=== PATIENT | female | born 1975 | race Two or more races ===

== ENCOUNTER 2022-11-17 05:23 | Emergency (ER) | payer MEDICAID, OTHER ==
[2022-11-17] MEDS ORDERED: PRED20TA2 PO (11:14)
[2022-11-17] MEDS ORDERED: IBUP800T27 PO (11:14)
== END 2022-11-17 06:01 | disposition left against medical advice (07) ==
LOC: ER 05:23
DX: S69.90XA Unspecified injury of unspecified wrist, hand and finger(s), initial encounter (principal); Z53.21 Procedure and treatment not carried out due to patient leaving prior to being seen by health care provider; X58.XXXA Exposure to other specified factors, initial encounter; Y93.89 Activity, other specified; Y92.89 Other specified places as the place of occurrence of the external cause; Y99.8 Other external cause status

== ENCOUNTER 2022-11-17 09:27 | Emergency (ER) | payer MEDICAID, OTHER ==
[~2022-11-17] VITALS: Ht 170.2 cm; Wt 112.6 kg
[2022-11-17 10:04] VITALS: BP 172/100
[2022-11-17] MEDS ORDERED: KETOROLAC TROMETH 60MG/2ML VIAL IM ONE (11:00)
[2022-11-17] MEDS ORDERED: IBUP800T27 PO (11:14)
[2022-11-17] MEDS ORDERED: PRED20TA2 PO (11:14)
== END 2022-11-17 11:21 | disposition home or self-care (01) ==
LOC: ER 09:27
DX: M19.022 Primary osteoarthritis, left elbow (principal)
CPT/HCPCS: 73080; 96372; 99283; J1885

== ENCOUNTER 2024-07-20 12:55 | Emergency (ER) | payer MEDICAID ==
[~2024-07-20] VITALS: Ht 170.2 cm; Wt 114.0 kg
[~2024-07-20 12:55] MED LIST: IBUP-1456 PO; PRED20TA2 PO
--- NOTE | 2024-07-20 13:22 | ED.PDOC ---
HPI (NEURO) HPI Comments 48 year old female presents to the ED with chief complaint of left sided numbness. Patient reports that she started experiencing left tongue numbness since yesterday with associated left arm and leg numbness 2 hours ago. Patient relays that her numbness has improved since onset and she is getting more feeling back in it. Patient admits to using Methamphetamine this morning prior to symptom onset. Patient states she has been under a lot of stress lately. Patient denies any weakness, chest pain, SOB, headache, LOC, dizziness, or fever. 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 Family History Family History: Reviewed,noncontributory to illness Social History Smoker: Quit Less Than 1 Year, Cigarettes Alcohol: Denies ETOH Use Drugs: Marijuana, Methamphetamine Lives In: Home Constitutional: denies: chills, diaphoresis, fatigue, fever, malaise, sweats, weakness, others EENTM: denies: blurred vision, double vision, ear bleeding, ear discharge, ear drainage, ear pain, ear ringing, eye pain, eye redness, hearing loss, mouth pain, mouth swelling, nasal discharge, nose bleeding, nose congestion, nose pain, photophobia, tearing, throat pain, throat swelling, voice changes, others Respiratory: denies: cough, hemoptysis, orthopnea, SOB at rest, shortness of breath, SOB with excertion, stridor, wheezing, others Cardiovascular: denies: chest pain, dizzy spells, diaphoresis, Dyspnea on exertion, edema, irregular heart beat, left arm pain, lightheadedness, palpitations, PND, syncope, others Gastrointestinal: denies: abdomen distended, abdominal pain, blood streaked bowels, constipated, diarrhea, dysphagia, difficulty swallowing, hematemesis, melena, nausea, poor appetite, poor fluid intake, rectal bleeding, rectal pain, vomiting, others Genitourinary: denies: abnormal vagina bleeding, burning, dyspareunia, dysuria, flank pain, frequency, hematuria, incontinence, pain, , vagina discha rge, urgency, others Neurological: reports: left sided numbness; denies: dizziness, fainting, headache, left sided weakness, numbness, paresthesia, pre-existing deficit, right sided numbness, right sided weakness, seizure, speech problems, tingling, tremors, weakness, others Musculoskeletal: denies: back pain, gout, joint pain, joint swelling, muscle pain, muscle stiffness, neck pain, others Integumetry: denies: bruises, change in color, change in hair/nails, dryness, laceration, lesions, lumps, rash, wounds, others Allergic/Immunocompromised: denies: Difficulty Healing, Frequent Infections, Hives, Itching, others Hematologic/Lymphatic: denies: anemia, blood clots, easy bleeding, easy bruising, swollen glands, others Endocrine: denies: excessive hunger, excessive sweating, excessive thirst, excessive urination, flushing, intolerance to cold, intolerance to heat, unexplained weight gain, unexplained weight loss, others Psychiatric: denies: anxiety, bipolar disorder, depression, hopeless, panic disorder, schizophrenia, sleepless, suicidal, others All Other Systems: Reviewed and Negative Physical Exam General Appearance: Mild Distress, Normal HEENT: Normal ENT Inspection, PERRL/EOMI Neck: Full Range of Motion, Non-Tender, Normal, Normal Inspection Respiratory: Chest Non-Tender, Lungs Clear, No Accessory Muscle Use, No Respiratory Distress, Normal Breath Sounds Cardiovascular: No Edema, No JVD, No Murmur, No Gallop, Normal Peripheral Pulses, Regular Rate/Rhythm Breast Exam: Deferred Gastrointestinal: No Organomegaly, Non Tender, No Pulsatile Mass, Normal Bowel Sounds, Soft Genitalia: Deferred Pelvic: Deferred Rectal: Deferred Extremities: No calf tenderness, Normal capillary refill, Normal inspection, Normal range of motion, Non-tender, No pedal edema Musculoskeletal : Apperance: Normal Neurologic: Alert, subpoena server II-XII nml as Tested, No Motor Deficits, Normal Affect, Normal Mood, No Sensory Deficits Cerebellar Function: Normal Reflexes: Normal Skin: Dry, Normal Color, Warm Peripheral Pulses: 3+ Radial (R), 3+ Radial (L) Lymphatic: No Adenopathy Was a procedure done? Was a procedure done?: No Differential Diagnosis (SZ) Seizure: Psychogenic Seizure, Closed Head Injury, CVA/TIA X-Ray, Labs, Meds, VS Vital Signs Date Time Temp Pulse Resp B/P (MAP) Pulse Ox O2 Delivery O2 Flow Rate FiO2 07/20/24 16:09 186/113 07/20/24 16:04 83 18 98 Room Air 07/20/24 16:04 98.2 83 18 186/113 (137) 98 98.2 07/20/24 14:06 98.5 74 18 206/118 (147) 97 07/20/24 14:06 87 Lab Test 07/20/24 15:00 Range/Units White Blood Count 10.6 4.4-10.8 10^3/uL Red Blood Count 6.40 H 4.0-5.20 10^6/uL Hemoglobin 12.0 L 12.2-16.2 g/dL Hematocrit 39.0 36.0-46.0 % Mean Corpuscular Volume 60.9 L 80.0-100.0 fL Mean Corpuscular Hemoglobin 18.8 L 28.0-32.0 pg Mean Corpuscular Hemoglobin Concent 30.9 L 32.0-36.0 g/dL Red Cell Distribution Width 20.2 H 11.8-14.3 % Platelet Count 287 140-450 10^3/uL Mean Platelet Volume 8.7 6.9-10.8 fL Neutrophils (%) (Auto) 69.5 37.0-80.0 % Lymphocytes (%) (Auto) 16.9 10.0-50.0 % Monocytes (%) (Auto) 4.9 0.0-12.0 % Eosinophils (%) (Auto) 7.7 H 0.0-7.0 % Basophils (%) (Auto) 1.0 0.0-2.0 % Neutrophils # (Auto) 7.4 1.6-8.6 10 ^3/uL Lymphocytes # (Auto) 1.8 0.4-5.4 10 ^3/uL Monocytes # (Auto) 0.5 0-1.3 10 ^3/uL Eosinophils # (Auto) 0.8 0-0.8 10 ^3/uL Basophils # (Auto) 0.1 0-0.2 10 ^3/uL Nucleated Red Blood Cells 0.2 % Platelet Estimate Adequate Hypochromasia (manual) Marked Microcytosis Marked Sodium Level 138 136-145 mmol/L Potassium Level 4.0 3.5-5.1 mmol/L Chloride Level 106 98-107 mmol/L Carbon Dioxide Level 23 20-31 mmol/L Anion Gap 9 5-15 Blood Urea Nitrogen 14 9-23 mg/dL Creatinine 0.72 0.550-1.02 mg/dL Glomerular Filtration Rate Calc 103 >90 mL/min BUN/Creatinine Ratio 19.4 10.0-20.0 Serum Glucose 90 74-106 mg/dL Calcium Level 9.8 8.7-10.4 mg/dL Troponin I High Sensitivity 11 </=34 ng/L Current Medications Medications (Trade) Dose Ordered Sig/Herbert Route Start Time Stop Time Status Last Admin Clonidine HCl (Catapres Tablet) 0.2 mg ONCE ONCE PO 07/20/24 13:30 07/20/24 13:31 DC 07/20/24 16:09 Patient alert. Possible anxiety. Vitals stable. Answering all questions. Ambulating. Had methamphetamine prior to coming to the ER. Blood pressure elevated. Was given clonidine. Saturation pristine on room air. Heart rate within normal limits. No leg swelling. No shortness a breath. No sign of any stroke. Patient did not want CT scan. Reviewed her previous visit. Explained to the patient. Was told to follow up with her primary care physician. Was told to come back if there is any problem. 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 Departure 1 Departure Time of Disposition: 17:39 Impression: Primary Impression: Hypertensive urgency Additional Impressions: Anxiety Methamphetamine use Disposition: 01 HOME / SELF CARE / HOMELESS Condition: Good Discharged With: Self Critical Care Note Critical Care Time?: No Stability Stability form required: No Heart Score Heart Score: Heart Score Response (Comments) Value History N/A 0 EKG N/A 0 Age N/A 0 Risk Factors N/A 0 Troponin N/A 0 Total 0 I personally scribed for YOAV EATON MD ([email or web address]) on 07/20/24 at 13:22. Electronically submitted by Carlos Manuel Sharma ([email or web address]). I personally scribed for YOAV EATON MD ([email or web address]) on 07/20/24 at 13:24. Electronically submitted by Carlos Manuel Sharma ([email or web address]). I personally scribed for YOAV EATON MD ([email or web address]) on 07/20/24 at 17:05. Electronically submitted by Helene Srinivasan ([email or web address]). YOAV EATON MD Jul 20, 2024 13:22
[2024-07-20 15:36] LABS: Basophils # (auto) 0.1 10 ^3/uL (0-0.2); Lymphocytes # (auto) 1.8 10 ^3/uL (0.4-5.4); Mean Corpuscular Volume 60.9 fL (80.0-100.0); Monocytes # (auto) 0.5 10 ^3/uL (0-1.3); Neutrophils % (auto) 69.5 % (37.0-80.0)
[2024-07-20 15:37] LABS: Eosinophils # (auto) 0.8 10 ^3/uL (0-0.8); Eosinophils % (auto) 7.7 % (0.0-7.0); Lymphocytes % (auto) 16.9 % (10.0-50.0); Mean Corpuscular Hemoglobin 18.8 pg (28.0-32.0); Mean Corpuscular Hgb Conc. 30.9 g/dL (32.0-36.0); Monocytes % (auto) 4.9 % (0.0-12.0); Neutrophils # (auto) 7.4 10 ^3/uL (1.6-8.6); Nucleated Red Blood Cells % 0.2 %; Platelet Count (auto) 287 10^3/uL (140-450); Red Cell Distribution Width 20.2 % (11.8-14.3); White Blood Cell 10.6 10^3/uL (4.4-10.8)
[2024-07-20 15:38] LABS: Chloride 106 mmol/L (98-107); Hypochromia Marked; Platelet Estimate Adequate; Sodium 138 mmol/L (136-145)
[2024-07-20 15:39] LABS: Anion Gap 9 (5-15); Calcium 9.8 mg/dL (8.7-10.4); Carbon Dioxide 23 mmol/L (20-31)
[2024-07-20 15:44] LABS: BUN/Creatinine Ratio 19.4 (10.0-20.0); Blood Urea Nitrogen 14 mg/dL (9-23); Glucose 90 mg/dL (74-106)
[2024-07-20] MEDS: cloNIDine HCL 0.1 MG TAB PO ONE (16:09)
[2024-07-20 19:35] VITALS: BP 167/108; PULSE 92; RESP 16; TEMP 97.7; O2SAT 99
--- NOTE | 2024-07-21 05:09 | ECG ---
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
== END 2024-07-20 19:41 | disposition home or self-care (01) ==
LOC: ER 12:57
DX: I16.0 Hypertensive urgency (principal); F41.9 Anxiety disorder, unspecified; F15.90 Other stimulant use, unspecified, uncomplicated; I51.7 Cardiomegaly; F12.10 Cannabis abuse, uncomplicated; Z87.891 Personal history of nicotine dependence
CPT/HCPCS: 36415; 80048; 84484; 85025; 93005

== ENCOUNTER 2024-08-28 15:30 | Inpatient (IN) | payer MEDICAID ==
[~2024-08-28] VITALS: Ht 170.2 cm; Wt 111.9 kg
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
[2024-08-28 16:01] LABS: Eosinophils # (auto) 0.5 10 ^3/uL (0-0.8); Mean Corpuscular Volume 60.9 fL (80.0-100.0); Monocytes # (auto) 0.5 10 ^3/uL (0-1.3); Nucleated Red Blood Cells % 0.1 %; White Blood Cell 9.2 10^3/uL (4.4-10.8)
[2024-08-28 16:03] LABS: Basophils # (auto) 0.1 10 ^3/uL (0-0.2); Basophils % (auto) 0.8 % (0.0-2.0); Eosinophils % (auto) 5.4 % (0.0-7.0); Hematocrit 37.8 % (36.0-46.0); Hemoglobin 11.7 g/dL (12.2-16.2); Lymphocytes # (auto) 1.3 10 ^3/uL (0.4-5.4); Lymphocytes % (auto) 13.8 % (10.0-50.0); Mean Corpuscular Hemoglobin 18.8 pg (28.0-32.0); Mean Corpuscular Hgb Conc. 30.8 g/dL (32.0-36.0); Monocytes % (auto) 5.4 % (0.0-12.0); Neutrophils # (auto) 6.9 10 ^3/uL (1.6-8.6); Neutrophils % (auto) 74.6 % (37.0-80.0); Platelet Count (auto) 290 10^3/uL (140-450); Red Blood Cells 6.22 10^6/uL (4.0-5.20)
[2024-08-28 16:12] LABS: Red Cell Distribution Width 20.5 % (11.8-14.3)
[2024-08-28 16:15] LABS: Alanine Aminotransferase 18 U/L (7-40); Albumin 4.5 g/dL (3.2-4.8); Anion Gap 9 (5-15); Aspartate Aminotransferase 26 U/L (13-40); BUN/Creatinine Ratio 18.7 (10.0-20.0); Blood Urea Nitrogen 14 mg/dL (9-23); Calcium 9.7 mg/dL (8.7-10.4); Carbon Dioxide 25 mmol/L (20-31); Chloride 106 mmol/L (98-107); Potassium 3.8 mmol/L (3.5-5.1); Sodium 140 mmol/L (136-145)
[2024-08-28 16:16] LABS: Bilirubin, Total 0.6 mg/dL (0.2-1.0)
[2024-08-28 16:17] LABS: Alkaline Phosphatase 146 U/L (46-116); Glucose 113 mg/dL (74-106)
--- NOTE | 2024-08-28 16:19 | DVH ---
EXAM: XR Chest, 1 View CLINICAL INDICATION: CP TECHNIQUE: Frontal view of the chest. COMPARISON: None FINDINGS: LUNGS AND PLEURAL SPACES: Unremarkable. No consolidation. No pneumothorax. HEART: Unremarkable. No cardiomegaly. MEDIASTINUM: Unremarkable. Normal mediastinal contour. BONES/JOINTS: Unremarkable. No acute fracture. OTHER FINDINGS: . None. . . .. IMPRESSION: No acute cardiopulmonary process.
[2024-08-28 18:11] LABS: Anisocytosis Slight; Hypochromia Marked; Platelet Estimate Adequate; Stomatocytes Few
[2024-08-28] MEDS: ASPirin-EC 325mg tab PO ONE (18:24)
--- NOTE | 2024-08-28 19:03 | ECG ---
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
[2024-08-28 19:22] LABS: Amphetamine Screen, Urine Pos (NEGATIVE); Barbiturate Scree,Urine Neg (NEGATIVE); Benzodiazephine Screen, Urine Neg (NEGATIVE); Cannabinoid Screen, Urine Neg (NEGATIVE); Cocaine Screen, Urine Neg (NEGATIVE); Opiate Scree,Urine Neg (NEGATIVE); Phencyclidine Screen, Urine Neg (NEGATIVE)
[2024-08-28 19:24] LABS: Urine Bacteria FEW /hpf (None Seen); Urine Blood 2+ /uL (Negative); Urine Clarity Turbid (Clear); Urine Color Yellow (Yellow); Urine Mucus FEW (None Seen); Urine Protein, UAD TRACE (Negative); Urine Specific Gravity 1.022 (1.001-1.035); Urine Squamous Epithelial Cell FEW /hpf (<5); Urine Urobilinogen Normal (Negative); Urine WBC 10 /HPF (0-5); Urine pH 6.5 (5.0-9.0)
[2024-08-28] MEDS: NITROGLYCERIN 0.4 MG SL TAB SL ONE (21:27)
[2024-08-28] MEDS: cefTRIAXone 1GM/50ML D5W 50 ML IV ONE (21:42)
[2024-08-28] MEDS: IOHEXOL 350 MG/ML 100ML IJ ONE (21:53)
[2024-08-28 22:37] LABS: INR 1.03 (0.9-1.15); Partial Thromboplastin Time 23.7 SEC (24.5-34.5); Prothrombin Time 10.9 sec (9.3-11.8)
--- NOTE | 2024-08-28 22:43 | DVHINCON2 ---
Date of service: Aug 28, [address] Uribe Reason for Consultation LLE weakness History of Present Illness This is a difficult, stat consult. She is a poor historian Ms. Lawson is a 48 years old right-handed female with a history of obesity, the patient was came to the hospital with a chief company of chest pain, but she was has other problems. She developed progressive weakness in the left arm and the leg when she was walking on 08/27/2024, and she was still able to walk and use the left arm and the leg; since the morning on 08/28/2024, she is not able to walk. At this time, she is not able to use the left upper extremity One month ago, she developed left-sided weakness, she was seen in the [facility] ER, but was discharged a few hours later with no specific treatment, but was advised to follow with her family doctor. Our EMR confirmed ERV/on 09/20/2023 for left-sided numbness She snores, but not loud according to her son, but her son reports symptoms suggestive of sleep apnea. Her sleep is non-refreshing, she was excessive daytime sleepiness, fatigue She reports and her son confirmed that she was worries excessively and unn ecessary, she thinks that she has, but has not been diagnosed with anxiety UDS, 08/28/2024: Amphetamine Urinalysis, 08/28/2024: WBC: 10, urine leukocyte esterase: 1+ WBC/HB/PLT/MCV, 08/28/2024: 9.2/11.7/290/60.9 Lactic acid, 08/28/2024: 1 CMP, 08/28/2024: Unremarkable Chest x-ray, 08/28/2024: No acute cardiopulmonary process. Past Medical History Obesity Past Surgical History Knee surgery Family History Hypertension, diabetes Social History She used to smoke tobacco, denies history of alcohol, recreational substance use (UDS: Methamphetamine) Allergies: Coded Allergies: NO KNOWN ALLERGIES (Unverified , 11/17/22) Home Meds Active Scripts Prednisone (Prednisone) 20 Mg Tab, 60 MG PO DAILY for 5 Days, #15 MG Prov:ARPITA HAMMOND 11/17/22 Ibuprofen (Ibuprofen) 800 Mg Tab, 1 TAB PO TID, #30 TAB Prov:ARPITA HAMMOND 11/17/22 Review of Systems As above, the other systems are negative Vital Signs Vital Signs Date Time Temp Pulse Resp B/P (MAP) Pulse Ox O2 Delivery O2 Flow Rate FiO2 08/28/24 21:27 156/110 08/28/24 21:24 98.3 90 17 96 98.3 08/28/24 21:24 Room Air Physical Exam GENERAL EXAM: General: the patient is well developed and nourished. No acute distress. HEENT: Normocephalic, neck is supple, no carotid bruits. No mass.e RESPIRATORY: Normal respiratory effort with symmetrical lung expansion. Lungs clear to auscultation. CARDIOVASCULAR: Regular rate and rhythm with no murmurs. S1, S2. ABDOMEN: Soft, nontender, normal bowel sound NEUROLOGICAL: MENTAL STATUS: Awake and alert. Oriented to person, place, time, poor historian SPEECH, LANGUAGE, HIGHER CORTICAL FUNCTION: no aphasia or dysathria. CRANIAL NERVES: #2: Intact visual dennis to confrontation. The optic discs were sharp. #3,4,6: Pupils are equal, round and reactive. EOMs full and conjugate. #5: Facial sensation intact in all three divisions bilaterally. Mandibular strength intact. #7: Facial muscles symmetrical and strength intact. #8: Hearing grossly normal to voice. #9,10: Uvula and soft palate rise in the midline. Swallow and voice are normal. #11: Trapezius and sternomastoid strength intact bilaterally. #12: Tongue is deviated to left side. No fasciculations or atrophy. SENSATION: Sensation to touch and pinprick is normal. MOTOR: Normal tone in the upper and lower extremity. Normal muscle bulk. No fasciculations. No abnormal movements or posturing. Muscle strength of the major groups in the right extremities is 5/5. Muscle strength of the major groups in the left extremities is 1-2/5 except for 3-4/5 in the gripping. REFLEXES: Deep tendon reflexes is symmetrical. No pathological reflexes. CEREBELLAR/COORDINATION: Deferred GAIT/STATION: deferred. Labs/Diagnostic Data Labs Test 08/28/24 22:12 08/28/24 22:10 08/28/24 18:30 08/28/24 18:29 Range/Units POC Glucose 106 70-106 mg/dl Troponin I High Sensitivity 7 </=34 ng/L Urine Color Yellow Yellow Urine Clarity Turbid H Clear Urine pH 6.5 5.0-9.0 Urine Specific [place] 1.022 1.001-1.035 Urine Protein Trace H Negative Urine Ketones Negative Negative Urine Blood 2+ H Negative /uL Urine Nitrite Negative Negative Urine Bilirubin Negative Negative Urine Urobilinogen Normal Negative mg/dL Urine Leukocyte Esterase 1+ Negative /uL Urine RBC 2 0 - 4 /hpf Urine Microscopic WBC 10 H 0-5 /HPF Urine Squamous Epithelial Cells Few <5 /hpf Urine Bacteria Few H None Seen /hpf Urine Mucus Few None Seen Urine Glucose Normal Normal mg/dL Urine Opiates Screen Neg NEGATIVE Urine Fentanyl Screen Neg NEGATIVE Urine Barbiturates Screen Neg NEGATIVE Urine Phencyclidine Screen Neg NEGATIVE Urine Amphetamines Screen Pos NEGATIVE Urine Benzodiazepines Screen Neg NEGATIVE Urine Cocaine Screen Neg NEGATIVE Urine Cannabinoids Screen Neg NEGATIVE Test 08/28/24 17:07 08/28/24 15:46 Range/Units Lactic Acid Level 1.0 0.4-2.0 mmol/L White Blood Count 9.2 4.4-10.8 10^3/uL Red Blood Count 6.22 H 4.0-5.20 10^6/uL Hemoglobin 11.7 L 12.2-16.2 g/dL Hematocrit 37.8 36.0-46.0 % Mean Corpuscular Volume 60.9 L 80.0-100.0 fL Mean Corpuscular Hemoglobin 18.8 L 28.0-32.0 pg Mean Corpuscular Hemoglobin Concent 30.8 L 32.0-36.0 g/dL Red Cell Distribution Width 20.5 H 11.8-14.3 % Platelet Count 290 140-450 10^3/uL Mean Platelet Volume 8.5 6.9-10.8 fL Neutrophils (%) (Auto) 74.6 37.0-80.0 % Lymphocytes (%) (Auto) 13.8 10.0-50.0 % Monocytes (%) (Auto) 5.4 0.0-12.0 % Eosinophils (%) (Auto) 5.4 0.0-7.0 % Basophils (%) (Auto) 0.8 0.0-2.0 % Neutrophils # (Auto) 6.9 1.6-8.6 10 ^3/uL Lymphocytes # (Auto) 1.3 0.4-5.4 10 ^3/uL Monocytes # (Auto) 0.5 0-1.3 10 ^3/uL Eosinophils # (Auto) 0.5 0-0.8 10 ^3/uL Basophils # (Auto) 0.1 0-0.2 10 ^3/uL Nucleated Red Blood Cells 0.1 % Platelet Estimate Adequate Hypochromasia (manual) Marked Anisocytosis (manual) Slight Microcytosis Marked Stomatocytes Few Sodium Level 140 136-145 mmol/L Potassium Level 3.8 3.5-5.1 mmol/L Chloride Level 106 98-107 mmol/L Carbon Dioxide Level 25 20-31 mmol/L Anion Gap 9 5-15 Blood Urea Nitrogen 14 9-23 mg/dL Creatinine 0.75 0.550-1.02 mg/dL Glomerular Filtration Rate Calc 98 >90 mL/min BUN/Creatinine Ratio 18.7 10.0-20.0 Serum Glucose 113 H 74-106 mg/dL Calcium Level 9.7 8.7-10.4 mg/dL Total Bilirubin 0.6 0.2-1.0 mg/dL Aspartate Amino Transferase (AST) 26 13-40 U/L Alanine Aminotransferase (ALT) 18 7-40 U/L Alkaline Phosphatase 146 H 46-116 U/L Total Protein 7.0 5.7-8.2 g/dL Albumin 4.5 3.2-4.8 g/dL Assessment Acute left-sided hemiparesis, rule out acute stroke Acute left-sided weakness on 07/20/2024, ? Acute stroke Obesity Sleep-related breathing disorder Anxiety Plan/Recommendation Monitoring Supportive treatment Telemetry Lipid profile Echocardiogram Carotid Doppler MRI head Aspirin 81 mg daily Lipitor 20 mg daily A trial of APAP in the hospital Tele psych consultation Re: Anxiety More recommendation per clinical course Progress: Poor This medical document was created using an electronic medical record system with [employer] dictation system. Although this document has been carefully reviewed, there may still be some phonetic and typographical errors. These areas are purely typographical due to imperfections of the software programs, and do not reflect any compromise in the patient's medical care. Plan discussed with: Patient, Son, Other MARIAH CESAR MD Aug 28, 2024 22:43
[2024-08-28 22:50] VITALS: PULSE 95; RESP 24; O2SAT 94
--- NOTE | 2024-08-28 23:27 | DVHHPRES ---
History of Present Illness Resident Creating Document: BESSIE SUH RESDIENT History of Present Illness This is a 48-year-old female with past medical history of hypertension and anxiety came to the hospital due to chest pain for 1 day. Per patient, the patient has intermittent midsternal chest pain, burning in nature, 05/10 in intensity. She also reports left-sided weakness (progressive weakness of left upper and lower limb since 2 days, and could not walk since today morning), cough and headache. Due to left lower limb weakness occupation could not walk since 1 day and has been been wheelchair-bound. She denies fever, headache, visual disturbance, nausea, vomiting, and any recent bowel and bladder habit changes. She also has history of left-sided weakness 1 month back, which was evaluated in ER and was recommended to follow up on outpatient basis. On physical examination patient had left upper and lower limb weakness with power 2/5. PMHx: Hypertension and anxiety Social history: Smokes cigarettes, denies any other drug use Home medication: Does not take any medicine Allergic history: No known allergies Review of Systems Review of Systems General: patient denies fever, fatigue, weaknes, sweating, any recent changes in appetite and weight HEENT: No headaches, visiual changes, hearing loss, tinnitus, nasal congestion and discharge, and sore throat. Cardiovascular: Reports chest pain Respiratory: No cough, and wheezing. Gastrointestinal: Denies nausea, vomiting, dysphagia, odynophagia, heartburn, abdominal pain, flatulence, bloating, diarrhea, constipation, change in stool, or blood in stool. Genitourinary: No dysuria, hematuria, discharge, frequency, urgency, nocturia, incontinence, and urinary retention. Endocrine: No heat or cold intolerance, polydipsia, polyuria, and polyphagia. Neurological: Reports left upper and Lower limb weakness Psychiatric: Denies depression, anxiety,or insomnia. Musculoskeletal: Denies neck pain, stiffness and swelling, back pain, muscle weakness, joint pain, stiffness, swelling, or limited range of motion. Skin: No rashes, itching, skin lesion, changes in hair, nail, skin texture and breast. Hematologic/Lymphatic: Denies easy bruising, bleeding tendencies, or lymph node enlargement. Allergies: Coded Allergies: NO KNOWN ALLERGIES (Unverified , 11/17/22) Exam Vital Signs Vital Signs Date Time Temp Pulse Resp B/P (MAP) Pulse Ox O2 Delivery O2 Flow Rate FiO2 08/28/24 21:27 156/110 08/28/24 21:24 98.3 90 17 96 98.3 08/28/24 21:24 Room Air Exam General Appearance: Alert, Oriented X3, Cooperative, No acute distress HEENT: Atraumatic, PERRLA, EOMI, Mucous membrane moist/pink Respiratory: Clear to auscultation, Normal air movement Cardiovascular: Regular rate, Normal S1, Normal S2, No murmurs, no chest wall tenderness Abdominal: Normal bowel sounds, Soft, No tenderness, No hepatospenomegaly, No masses Extremities: No clubbing, No cyanosis, No edema, Normal pulses, No tenderness/swelling Skin: No rashes, No breakdown, No significant lesion Neuro: Left upper lower limb weakness with power 08/28 Psych/Mental Status: Mental status NL, Mood NL Labs/Xrays Labs Test 08/28/24 22:12 08/28/24 22:10 08/28/24 18:30 08/28/24 18:29 Range/Units POC Glucose 106 70-106 mg/dl Prothrombin Time 10.9 9.3-11.8 sec Prothrombin Time INR 1.03 0.9-1.15 Activated Partial Thromboplast Time 23.7 L 24.5-34.5 SEC Magnesium Level 2.0 1.6-2.6 mg/dL Troponin I High Sensitivity 7 </=34 ng/L Urine Color Yellow Yellow Urine Clarity Turbid H Clear Urine pH 6.5 5.0-9.0 Urine Specific [place] 1.022 1.001-1.035 Urine Protein Trace H Negative Urine Ketones Negative Negative Urine Blood 2+ H Negative /uL Urine Nitrite Negative Negative Urine Bilirubin Negative Negative Urine Urobilinogen Normal Negative mg/dL Urine Leukocyte Esterase 1+ Negative /uL Urine RBC 2 0 - 4 /hpf Urine Microscopic WBC 10 H 0-5 /HPF Urine Squamous Epithelial Cells Few <5 /hpf Urine Bacteria Few H None Seen /hpf Urine Mucus Few None Seen Urine Glucose Normal Normal mg/dL Urine Opiates Screen Neg NEGATIVE Urine Fentanyl Screen Neg NEGATIVE Urine Barbiturates Screen Neg NEGATIVE Urine Phencyclidine Screen Neg NEGATIVE Urine Amphetamines Screen Pos NEGATIVE Urine Benzodiazepines Screen Neg NEGATIVE Urine Cocaine Screen Neg NEGATIVE Urine Cannabinoids Screen Neg NEGATIVE Test 08/28/24 17:07 08/28/24 15:46 Range/Units Lactic Acid Level 1.0 0.4-2.0 mmol/L White Blood Count 9.2 4.4-10.8 10^3/uL Red Blood Count 6.22 H 4.0-5.20 10^6/uL Hemoglobin 11.7 L 12.2-16.2 g/dL Hematocrit 37.8 36.0-46.0 % Mean Corpuscular Volume 60.9 L 80.0-100.0 fL Mean Corpuscular Hemoglobin 18.8 L 28.0-32.0 pg Mean Corpuscular Hemoglobin Concent 30.8 L 32.0-36.0 g/dL Red Cell Distribution Width 20.5 H 11.8-14.3 % Platelet Count 290 140-450 10^3/uL Mean Platelet Volume 8.5 6.9-10.8 fL Neutrophils (%) (Auto) 74.6 37.0-80.0 % Lymphocytes (%) (Auto) 13.8 10.0-50.0 % Monocytes (%) (Auto) 5.4 0.0-12.0 % Eosinophils (%) (Auto) 5.4 0.0-7.0 % Basophils (%) (Auto) 0.8 0.0-2.0 % Neutrophils # (Auto) 6.9 1.6-8.6 10 ^3/uL Lymphocytes # (Auto) 1.3 0.4-5.4 10 ^3/uL Monocytes # (Auto) 0.5 0-1.3 10 ^3/uL Eosinophils # (Auto) 0.5 0-0.8 10 ^3/uL Basophils # (Auto) 0.1 0-0.2 10 ^3/uL Nucleated Red Blood Cells 0.1 % Platelet Estimate Adequate Hypochromasia (manual) Marked Anisocytosis (manual) Slight Microcytosis Marked Stomatocytes Few Sodium Level 140 136-145 mmol/L Potassium Level 3.8 3.5-5.1 mmol/L Chloride Level 106 98-107 mmol/L Carbon Dioxide Level 25 20-31 mmol/L Anion Gap 9 5-15 Blood Urea Nitrogen 14 9-23 mg/dL Creatinine 0.75 0.550-1.02 mg/dL Glomerular Filtration Rate Calc 98 >90 mL/min BUN/Creatinine Ratio 18.7 10.0-20.0 Serum Glucose 113 H 74-106 mg/dL Calcium Level 9.7 8.7-10.4 mg/dL Total Bilirubin 0.6 0.2-1.0 mg/dL Aspartate Amino Transferase (AST) 26 13-40 U/L Alanine Aminotransferase (ALT) 18 7-40 U/L Alkaline Phosphatase 146 H 46-116 U/L Total Protein 7.0 5.7-8.2 g/dL Albumin 4.5 3.2-4.8 g/dL Assessment/Plan Assessment/Plan Acute ischemic stroke CT scan shows no intracranial hemorrhage CT angio head/neck shows widely patent arteries in Head and neck EKG shows normal sinus rhythm with no acute ST or T-wave changes Neurology consulted, recommended conservative management Check echo, carotid Doppler and head MRI Aspirin Lipitor Possible sleep apnea BiPAP at night Anxiety Telepsych evaluation Methamphetamine use disorder Current smoker UA shows UTI picture, but the patient does not have UTI symptoms Possible dirty sample DIET: Cardiac diet DVT PROPHYLAXIS: Lovenox CODE STATUS: Goal of care discussed for more than 21 minutes, full code DISPOSITION: Telemetry Patient's status and paln discussed with the patient and son at the bedside. Case discussed with Dr. Cardenas. Plan discussed with: Patient, Son, Other (RN) Date of Service: Aug 29, 2024 Billing Provider: JUAN MANUEL CARDENAS MD Common Visit Codes: [id number] INP/OBS CARE (HIGH) BESSIE SUH RESDIENT Aug 28, 2024 23:27 JUAN MANUEL CARDENAS MD Aug 29, 2024 09:15
[2024-08-28] MEDS ORDERED: MORPHINE SULFATE INJ 2 MG/ml SYRG IV PRN (23:30)
[2024-08-28] MEDS ORDERED: NITROGLYCERIN 0.4 MG SL TAB SL PRN (23:30)
[2024-08-28 23:40] VITALS: BP 156/110; PULSE 90; TEMP 98.3; O2SAT 96
[2024-08-28] MEDS ORDERED: TEMAZEPAM 15 MG CAP PO PRN (23:45)
--- NOTE | 2024-08-28 23:57 | DVH ---
EXAM: CT ANGIO HEAD/NECK CLINICAL HISTORY: POSS STROKE TECHNIQUE: CT angiogram of the head and neck was performed without and with intravenous contrast. ml of was administered intravenously. 3D MIP reconstructed images were created and archived on the PAC S system. This exam was performed according to our departmental dose optimization program. Up-to-date CT equipment and radiation dose reduction techniques are utilized as appropriate. COMPARISON: None FINDINGS: CTA head: The ventricles and subarachnoid spaces are normal in size and configuration. The collado white matter in terfaces are maintained There is no midline shift or mass effect. There is no evidence of acute intra cranial hemorrhage. The basal cisterns are patent. The calvarium is intact. The distal internal carotid, vertebral, and basilar arteries are patent without focal narrowing or oc clusion. The anterior, middle, and posterior cerebral arteries are patent without focal narrowing. No aneurysm or arteriovenous malformation is identified. CTA neck: The aortic arch vessel origins are widely patent. The common carotid and cervical portions of the int ernal carotid and vertebral arteries are patent without focal narrowing according to NASCET criteria. No aneurysm, AVM, or dissection is identified. The cervical soft tissues are unremarkable. The paranasal sinus and mastoid air cells are clear. The lung apices are clear. Multiple mandibular teeth have been removed. Most of the maxillary teeth have been removed. There is multilevel mild cervical spondylosis. Dental caries and periapical lucencies in remaining left maxillary teeth. IMPRESSION: 1. No acute intracranial abnormality. 2. Widely patent arteries in the head and neck without large vessel occlusion, significant stenosis, aneurysm, or AVM. No dissection. 3. Most of the maxillary teeth have been removed and dental caries and periapical lucencies in the re maining left maxillary teeth.
[2024-08-29] VITALS (7 sets, daily range): BP systolic 154–166; BP diastolic 68–94; PULSE 77–82; RESP 18–24; TEMP 98.1–98.2; O2SAT 96–98
[2024-08-29] LABS: LDL Cholesterol 74 mg/dL (< 100); Triglycerides 126 mg/dL (< 150)
[2024-08-29 00:02] LABS: Cholesterol 118 mg/dL (< 200)
[2024-08-29 00:09] LABS: HDL Cholesterol 34 mg/dL (40-59)
[2024-08-29] MEDS: ENOXAPARIN SOD 40 MG/0.4 ML SYRINGE SC ONE (04:11)
[2024-08-29] MEDS: ASPirin 81 mg TAB PO ONE (04:20)
[2024-08-29] MEDS: ATORVASTATIN 20 MG TAB PO ONE (04:30)
[2024-08-29 06:13] LABS: Basophils # (auto) 0.1 10 ^3/uL (0-0.2); Eosinophils # (auto) 0.5 10 ^3/uL (0-0.8); Mean Corpuscular Hemoglobin 19.2 pg (28.0-32.0); Monocytes # (auto) 0.7 10 ^3/uL (0-1.3); White Blood Cell 9.1 10^3/uL (4.4-10.8)
[2024-08-29 06:15] LABS: Basophils % (auto) 0.7 % (0.0-2.0); Eosinophils % (auto) 5.1 % (0.0-7.0); Hematocrit 33.4 % (36.0-46.0); Hemoglobin 10.6 g/dL (12.2-16.2); Lymphocytes # (auto) 1.7 10 ^3/uL (0.4-5.4); Lymphocytes % (auto) 18.7 % (10.0-50.0); Mean Corpuscular Hgb Conc. 31.6 g/dL (32.0-36.0); Mean Corpuscular Volume 60.7 fL (80.0-100.0); Monocytes % (auto) 7.9 % (0.0-12.0); Neutrophils # (auto) 6.1 10 ^3/uL (1.6-8.6); Neutrophils % (auto) 67.6 % (37.0-80.0); Platelet Count (auto) 282 10^3/uL (140-450)
[2024-08-29 06:25] LABS: Alanine Aminotransferase 19 U/L (7-40); Anion Gap 9 (5-15); Aspartate Aminotransferase 32 U/L (13-40); Bilirubin, Total 0.4 mg/dL (0.2-1.0); Blood Urea Nitrogen 16 mg/dL (9-23); Calcium 9.5 mg/dL (8.7-10.4); Carbon Dioxide 25 mmol/L (20-31); Chloride 105 mmol/L (98-107); Sodium 139 mmol/L (136-145); Total Protein 6.5 g/dL (5.7-8.2)
[2024-08-29 06:32] LABS: Alkaline Phosphatase 125 U/L (46-116); Glucose 122 mg/dL (74-106); Potassium 3.2 mmol/L (3.5-5.1)
[2024-08-29 06:33] LABS: Red Cell Distribution Width 20.4 % (11.8-14.3)
--- NOTE | 2024-08-29 07:26 | ECG ---
[facility] Test Date: 2024-08-28 Test Time: 15:40:45 Pat Name: BHASKAR FERGUSON Department: ER Room: [address] [place] [address] Gender: F Sulfur Chloride Operator: ALVARO : 1975 Requested By: YOAV EATON Order Number: [id number] Reading MD: Zach Shirley Measurements Intervals [place] Rate: 88 P: -9 [place]: 144 QRS: 12 QRSD: 105 T: 85 QT: 391 QTc: 473 Interpretive Statements Sinus rhythm Ventricular premature complex Left ventricular hypertrophy ST elevation, consider inferior injury Baseline wander in lead(s) V1 Electronically Signed On 08-29-2024 9:49:24 PST by Zach Shirley Please click the below link to view image of tracing.
[2024-08-29] MEDS: POTASSIUM CHLORIDE 40 MEQ, LIDOCAINE 1% (LOCAL ANESTH.) 4 ML in SODIUM CHL 0.9% 250 ML IV ONE (09:15)
--- NOTE | 2024-08-29 09:36 | DVHPN2 ---
Progress Note - Dictate Date Seen: Aug 29, 2024 Medical Necessity Reason Pt with a Central, PICC or Fol: No Subjective Ms. Lawson is a 48 years old right-handed female with a history of obesity, the patient was came to the hospital with a chief company of chest pain, but she was has other problems. She developed progressive weakness in the left arm and the leg when she was walking on 08/27/2024, and she was still able to walk and use the left arm and the leg; since the morning on 08/28/2024, she is not able to walk. At this time, she is not able to use the left upper extremity I have seen and examined the patient, I have discussed with her nurse, she was improvement in the left-sided weakness, no new complaint She was not received APAP yet UDS, 08/28/2024: Amphetamine Urinalysis, 08/28/2024: WBC: 10, urine leukocyte esterase: 1+ WBC/HB/PLT/MCV, 08/28/2024: 9.2/11.7/290/60.9 Lactic acid, 08/28/2024: 1 CMP, 08/28/2024: Unremarkable TG/HDL/LDL/HDL, 08/28/2024: 126/118/74/34 Chest x-ray, 08/28/2024: No acute cardiopulmonary process CTA neck, head, 08/28/2024: 1. No acute intracranial abnormality. 2. Widely patent arteries in the head and neck without large vessel occlusion, significant stenosis, aneurysm, or AVM. No dissection. 3. Most of the maxillary teeth have been removed and dental caries and periapical lucencies in the remaining left maxillary teeth. vital signs Vital Sign Date Time Temp Pulse Resp B/P (MAP) Pulse Ox O2 Delivery O2 Flow Rate FiO2 08/29/24 08:00 91 08/29/24 06:00 17 146/86 (106) 94 08/28/24 23:40 98.3 0.0 21 98.3 08/28/24 22:50 Room Air* Total Intake and Output 08/28/24 08/28/24 08/29/24 15:00 23:00 07:00 Intake Total 50 ml Balance 50 ml medications Current Medications Medications Dose Ordered Sig/Herbert Route Start Time Stop Time Status Last Admin Dose Admin Aspirin 81 mg DAILY PO 08/30/24 10:00 Atorvastatin Calcium 80 mg HS PO 08/29/24 22:00 Enoxaparin Sodium 40 mg DAILY SC 08/30/24 10:00 Acetaminophen 650 mg Q4HP PRN PO 08/29/24 04:30 objective General: the patient is well developed and nourished. No acute distress. MENTAL STATUS: Awake and alert. Oriented to person, place, time, poor historian SPEECH, LANGUAGE, HIGHER CORTICAL FUNCTION: no aphasia or dysathria. CRANIAL NERVES: Pupils are equal, round and reactive. EOMs full and conjugate. Facial sensation intact in all three divisions bilaterally. Mandibular strength intact. Facial muscles symmetrical and strength intact. Tongue is deviated to left side. No fasciculations or atrophy. SENSATION: Sensation to touch and pinprick is normal. MOTOR: Normal tone in the upper and lower extremity. Normal muscle bulk. No fasciculations. No abnormal movements or posturing. Muscle strength of the major groups in the right extremities is 5/5. Muscle strength of the major groups in the left extremities is 3/5 except for 4/5 in the gripping. REFLEXES: Deep tendon reflexes is symmetrical. No pathological reflexes. CEREBELLAR/COORDINATION: Deferred laboratory and microbiology Laboratory Tests 08/29/24 05:16 Test 08/29/24 05:16 Range/Units Serum Glucose 122 H 74-106 mg/dL Problem List Acute left-sided hemiparesis, rule out acute stroke Acute left-sided weakness on 07/20/2024, ? Acute stroke UTI Obesity Sleep-related breathing disorder Anxiety Assessment/Plan Monitoring Supportive treatment Telemetry Echocardiogram MRI head Aspirin 81 mg daily Lipitor 20 mg daily A trial of APAP in the hospital Quit Substance abuse Tele psych consultation Re: Anxiety More recommendation per clinical course This medical document was created using an electronic medical record system with [employer] dictation system. Although this document has been carefully reviewed, there may still be some phonetic and typographical errors. These areas are purely typographical due to imperfections of the software programs, and do not reflect any compromise in the patient's medical care Prognosis poor Plan discussed with: Patient, Other MARIAH CESAR MD Aug 29, 2024 09:36
--- NOTE | 2024-08-29 09:42 | DVH ---
EXAM: MRI BRAIN HEAD WO CONTRAST HISTORY: cva COMPARISON: CT angiogram dated 08/28/2024 TECHNIQUE: MRI was performed utilizing multiple appropriate imaging planes and pulse sequences. FINDINGS: SUPRATENTORIAL REGION: Acute ischemia noted in right side of rostrum, genu and body of corpus callos um, and its adjacent right frontoparietal subcortical regions extending posteriorly to precentral gy dian. No intracranial hemorrhage noted. There is no midline shift. POSTERIOR FOSSA: Unremarkable. BRAINSTEM: Unremarkable. SELLAR/SUPRASELLAR REGION: Unremarkable. VENTRICLES, CISTERNS, SULCI: Age-appropriate. ORBITS: Unremarkable. PARANASAL SINUSES: Unremarkable. MASTOID AIR CELLS: Unremarkable. VASCULATURE: Unremarkable. BONES/ SOFT TISSUES: Unremarkable. OTHER: None. IMPRESSION: 1. Moderately large right anterior cerebral artery territorial pericallosal infarct involving the rig ht aspect of the genu and body of corpus callosum with scattered subcentimeter foci of ischemia in pr ecentral gyrus subcortical region posteriorly and medial frontal subcortical region anteriorly. No m ass effect, midline shift or hemorrhagic transformation. Critical Result: Stroke Alert Findings discussed with dr. Jolene Thakkar at 08/29/2024 09:33 AM, and acknowledged receipt and understa nding of the findings. ..
[2024-08-29] MEDS: POLYETHYLENE GLYCOL 17 GM PWDR PO ONE (13:13)
[2024-08-29] MEDS: ACETAMINOPHEN 325 MG TAB PO PRN (13:14)
[2024-08-29] MEDS: METOPROLOL SUCCINATE XL 50 MG TAB PO SCH (13:14)
[2024-08-29] MEDS ORDERED: HYDR12.59 PO (17:04)
--- NOTE | 2024-08-29 17:53 | DVHPNRES ---
Progress Note Date Seen: Aug 29, 2024 Resident Creating Document: MAYDA JAIN RESIDENT Has the PT tested + for MRSA If YES, has PT been informed?: No Medical Necessity Reason Pt with a Central, PICC or Fol: No Subjective Review of Systems This is a 48-year-old female with past medical history of hypertension and anxiety came to the hospital due to chest pain for 1 day. Per patient, the patient has intermittent midsternal chest pain, burning in nature, 05/10 in intensity. She also reports left-sided weakness (progressive weakness of left upper and lower limb since 2 days, and could not walk since today morning), cough and headache. Due to left lower limb weakness occupation could not walk since 1 day and has been been wheelchair-bound. She denies fever, headache, visual disturbance, nausea, vomiting, and any recent bowel and bladder habit changes. She also has history of left-sided weakness 1 month back, which was evaluated in ER and was recommended to follow up on outpatient basis. PMHx: Hypertension and anxiety Social history: Smokes cigarettes, denies any other drug use Home medication: Does not take any medicine Allergic history: No known allergies Objective vital signs Vital Sign Date Time Temp Pulse Resp B/P (MAP) Pulse Ox O2 Delivery O2 Flow Rate FiO2 08/29/24 16:30 98.2 82 20 166/94 (118) 96 98.2 08/29/24 07:34 Nasal Cannula* 2 28 Total Intake and Output 08/28/24 08/28/24 08/29/24 15:00 23:00 07:00 Intake Total 50 ml Balance 50 ml medications Current Medications Medications Dose Ordered Sig/Herbert Route Start Time Stop Time Status Last Admin Dose Admin Aspirin 81 mg DAILY PO 08/30/24 10:00 Atorvastatin Calcium 80 mg HS PO 08/29/24 22:00 Enoxaparin Sodium 40 mg DAILY SC 08/30/24 10:00 Acetaminophen 650 mg Q4HP PRN PO 08/29/24 04:30 08/29/24 13:14 650 MG Ceftriaxone Sodium 50 ml @ 100 mls/hr DAILY@09 IV 08/30/24 09:00 Metoprolol Succinate 25 mg DAILY PO 08/29/24 11:45 08/29/24 13:14 25 MG Acetaminophen/ Hydrocodone Bitart 1 tab Q4HPRN PRN PO 08/29/24 11:45 Examination General: The patient is well-developed and well-nourished with no acute distress. Mental Status: Awake and alert. Oriented to person, place, and time. Provides history poorly. Speech, Language, Higher Cortical Function: No evidence of aphasia or dysarthria. Cranial Nerves: Visual dennis intact to confrontation. Pupils are equal, round, and reactive to light. Extraocular movements are full and conjugate. Facial sensation is symmetric bilaterally. Mandibular strength is intact. Facial muscles show normal movement. No asymmetry. Hearing grossly normal to voice. Uvula midline and symmetrical rise of the soft palate. Swallow and voice are normal. Tongue deviates slightly to the left without evidence of fasciculations or atrophy. Motor: Tone is normal in the upper and lower extremities. Muscle bulk is preserved. No fasciculations, abnormal movements, or posturing noted. Muscle strength in the right upper and lower extremities is 5/5. Left upper and lower extremities demonstrate decreased strength: 1-2/5 in the left proximal upper extremity. 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 Reflexes: Deep tendon reflexes are intact. No pathological reflexes. laboratory and microbiology Laboratory Tests 08/29/24 05:16 Test 08/29/24 05:16 Range/Units Serum Glucose 122 H 74-106 mg/dL Problem List/Assessment/Plan Problem List/Assessment/Plan #Acute stroke: Moderately large right anterior cerebral artery territorial pericallosal infarct MRI: Moderately large right anterior cerebral artery territorial pericallosal infarct involving the right aspect of the genu and body of corpus callosum with scattered subcentimeter foci of ischemia in precentral gyrus subcortical region posteriorly and medial frontal subcortical region anteriorly. #New onset Chronic systolic heart failure #Hypokalemia #PVCs #Chest pain #UTI? #Meth abuse NO IV BP MEDS: permissive hypertension Patient is out of window for thrombolysis Aspirin Statin Metoprolol low dose due to PVCs: discussed with Dr Rojas PT evaluation for rehab K IV Ceftriaxone IV Case discussed with Dr Ricardo Time spent on care 23 min Plan discussed with: Patient, Other (rn) My Orders My Orders Orders - MAYDA JAIN RESIDENT Procedure Category Date Status Time Metoprolol Xl PHA 08/29/24 In Process Succinate (Toprol Xl) 11:45 Pt Request For Service PT 08/29/24 Logged 11:37 Hydrocodone-Acet PHA 08/29/24 In Process 5/325mg Tab (Sharon 11:45 Date of Service: Aug 29, 2024 Billing Provider: JUAN MANUEL RICARDO MD Common Visit Codes: [id number] INP/OBS CARE(HIGH) MAYDA JAIN RESIDENT Aug 29, 2024 17:53 JUAN MANUEL RICARDO MD Sep 01, 2024 14:49
--- NOTE | 2024-08-29 17:56 | DVHSR ---
APPROVED REPORT EXAM: Two-dimensional and M-mode echocardiogram with Doppler and color Doppler. Blood Pressure: 146/86 mmHg INDICATION CVA RISK FACTORS Height: 67, Weight: 241 DIMENSIONS LVDd (3.8-5.7cm)LA (2D)5.1 (1.9-4.0cm)Aortic Root3.5 (2.0-3.7cm) LVDs (2.5-4.0cm)LA (MM) (1.9-4.0cm)Aortic Cusp Exc2.0 (1.5-2.0cm) EF (%) 55.0 (55-70%)Rt. Atrium3.4 (1.9-4.0cm)Asc. Aorta cm Mitral Valve MitralMitral Stenosis E wave1.01m/sMV Mean GR.mmHg A wave1.62m/sMV Peak GR.80mmHg E/A ratio0.62D MVAcm2 DECEL [id number] 1/2 Apls27fm IVRTmsDop MVA3.36cm2 Aortic Valve Aortic ValveAortic Stenosis V10.86m/Alessio Mean GR.5mmHg V21.55m/Alessio Peak GR.10mmHg LVOT Diameter2.1 (1.8-2.4cm)Doppler AVA1.92cm2 Pulmonic Valve V20.91m/s Other Information Technically limited study due to body habitus, patient position, patient moving and patient was non compliant during exam. Conclusion Technically difficult study. Difficult acoustic windows. Left atrial enlargement. Hypertrophied papillary muscle. Valves are structurally normal. Left ventricular function is slightly diminished. EF is about 40%. Mild global hypokinesis. Dyssyn chrony and cardiac contractility secondary to bundle-branch block. Dopplers unremarkable. No pericardial effusion masses or vegetations discernible.
[2024-08-29] MEDS: ATORVASTATIN 20 MG TAB PO SCH (21:14)
[2024-08-30] VITALS (10 sets, daily range): BP systolic 150–176; BP diastolic 79–96; PULSE 76–86; RESP 18–20; TEMP 97.9–98.8; O2SAT 67–100
[2024-08-30] MEDS ORDERED: LISINOPRIL 5 MG TAB PO ONE (00:15)
[2024-08-30] MEDS: HYDROcodone-ACET 5/325MG TAB PO PRN (00:39)
[2024-08-30] MEDS: ONDANSETRON HCL 4 MG/2 ML VIAL IV ONE (01:24)
[2024-08-30 07:27] LABS: Basophils # (auto) 0.1 10 ^3/uL (0-0.2); Basophils % (auto) 0.7 % (0.0-2.0); Eosinophils # (auto) 0.7 10 ^3/uL (0-0.8); Hemoglobin 10.3 g/dL (12.2-16.2); Monocytes # (auto) 0.7 10 ^3/uL (0-1.3); Neutrophils # (auto) 5.3 10 ^3/uL (1.6-8.6); Neutrophils % (auto) 62.4 % (37.0-80.0); White Blood Cell 8.5 10^3/uL (4.4-10.8)
[2024-08-30 07:32] LABS: Eosinophils % (auto) 8.1 % (0.0-7.0); Lymphocytes # (auto) 1.7 10 ^3/uL (0.4-5.4); Lymphocytes % (auto) 20.2 % (10.0-50.0); Mean Corpuscular Hemoglobin 18.8 pg (28.0-32.0); Mean Corpuscular Hgb Conc. 30.3 g/dL (32.0-36.0); Mean Corpuscular Volume 62.1 fL (80.0-100.0); Monocytes % (auto) 8.6 % (0.0-12.0); Platelet Count (auto) 244 10^3/uL (140-450); Red Blood Cells 5.48 10^6/uL (4.0-5.20); Red Cell Distribution Width 20.5 % (11.8-14.3)
[2024-08-30 07:39] LABS: Alanine Aminotransferase 21 U/L (7-40); Anion Gap 8 (5-15); Aspartate Aminotransferase 28 U/L (13-40); BUN/Creatinine Ratio 21.1 (10.0-20.0); Bilirubin, Total 0.5 mg/dL (0.2-1.0); Blood Urea Nitrogen 16 mg/dL (9-23); Calcium 9.4 mg/dL (8.7-10.4); Carbon Dioxide 25 mmol/L (20-31); Magnesium 2.1 mg/dL (1.6-2.6); Potassium 4.1 mmol/L (3.5-5.1); Sodium 141 mmol/L (136-145); Total Protein 6.4 g/dL (5.7-8.2)
[2024-08-30 07:40] LABS: Alkaline Phosphatase 126 U/L (46-116); Chloride 108 mmol/L (98-107); Glucose 106 mg/dL (74-106)
[2024-08-30] MEDS: cefTRIAXone 1GM/50ML D5W 50 ML IV SCH (09:46)
[2024-08-30] MEDS: ASPirin 81 mg TAB PO SCH (09:47)
[2024-08-30] MEDS: ENOXAPARIN SOD 40 MG/0.4 ML SYRINGE SC SCH (09:47)
[2024-08-30] MEDS ORDERED: SACUBITRIL-VALSARTAN 24mg/26mg TAB PO SCH ×2 (10:15→22:00)
[2024-08-30] MEDS: POLYETHYLENE GLYCOL 17 GM PWDR PO ONE (11:25)
[2024-08-30] MEDS: SPIRONOLACTONE 25 MG TAB PO SCH (11:25)
[2024-08-30] MEDS: EMPAGLIFLOZIN 10 MG TAB PO SCH (11:26)
--- NOTE | 2024-08-30 12:44 | DVHINCON2 ---
Date of Service if different f: Aug 30, 2024 Time of Service: 11:36 Consultation ([facility]) Consulting Physician: ELLY PERRY MD Labs Laboratory Tests Test 08/28/24 15:46 08/28/24 17:07 08/28/24 18:29 08/28/24 18:30 Platelet Estimate Adequate Hypochromasia (manual) Marked Anisocytosis (manual) Slight Microcytosis Marked Stomatocytes Few Lactic Acid Level 1.0 mmol/L (0.4-2.0) Urine Color Yellow (Yellow) Urine Clarity Turbid (Clear) Urine pH 6.5 (5.0-9.0) Urine Specific [place] 1.022 (1.001-1.035) Urine Protein Trace (Negative) Urine Ketones Negative (Negative) Urine Blood 2+ /uL (Negative) Urine Nitrite Negative (Negative) Urine Bilirubin Negative (Negative) Urine Urobilinogen Normal mg/dL (Negative) Urine Leukocyte Esterase 1+ /uL (Negative) Urine RBC 2 /hpf (0 - 4) Urine Microscopic WBC 10 /HPF (0-5) Urine Squamous Epithelial Cells Few /hpf (<5) Urine Bacteria Few /hpf (None Seen) Urine Mucus Few (None Seen) Urine Glucose Normal mg/dL (Normal) Urine Opiates Screen Neg (NEGATIVE) Urine Fentanyl Screen Neg (NEGATIVE) Urine Barbiturates Screen Neg (NEGATIVE) Urine Phencyclidine Screen Neg (NEGATIVE) Urine Amphetamines Screen Pos (NEGATIVE) Urine Benzodiazepines Screen Neg (NEGATIVE) Urine Cocaine Screen Neg (NEGATIVE) Urine Cannabinoids Screen Neg (NEGATIVE) Troponin I High Sensitivity 7 ng/L (</=34) Test 08/28/24 22:10 08/28/24 22:12 08/29/24 05:16 08/30/24 06:09 Prothrombin Time 10.9 sec (9.3-11.8) Prothromb Time International Ratio 1.03 (0.9-1.15) Activated Partial Thromboplast Time 23.7 SEC (24.5-34.5) Triglycerides Level 126 mg/dL (< 150) Cholesterol Level 118 mg/dL (< 200) LDL Cholesterol 74 mg/dL (< 100) HDL Cholesterol 34 mg/dL (40-59) Bedside Glucose 106 mg/dl (70-106) Hemoglobin A1c 5.4 % A1C (<5.7) Thyroid Stimulating Hormone (TSH) 2.43 uIU/mL (0.55-4.78) White Blood Count 8.5 10^3/uL (4.4-10.8) Red Blood Count 5.48 10^6/uL (4.0-5.20) Hemoglobin 10.3 g/dL (12.2-16.2) Hematocrit 34.0 % (36.0-46.0) Mean Corpuscular Volume 62.1 fL (80.0-100.0) Mean Corpuscular Hemoglobin 18.8 pg (28.0-32.0) Mean Corpuscular Hemoglobin Concent 30.3 g/dL (32.0-36.0) Red Cell Distribution Width 20.5 % (11.8-14.3) Platelet Count 244 10^3/uL (140-450) Mean Platelet Volume 8.8 fL (6.9-10.8) Neutrophils (%) (Auto) 62.4 % (37.0-80.0) Lymphocytes (%) (Auto) 20.2 % (10.0-50.0) Monocytes (%) (Auto) 8.6 % (0.0-12.0) Eosinophils (%) (Auto) 8.1 % (0.0-7.0) Basophils (%) (Auto) 0.7 % (0.0-2.0) Neutrophils # (Auto) 5.3 10 ^3/uL (1.6-8.6) Lymphocytes # (Auto) 1.7 10 ^3/uL (0.4-5.4) Monocytes # (Auto) 0.7 10 ^3/uL (0-1.3) Eosinophils # (Auto) 0.7 10 ^3/uL (0-0.8) Basophils # (Auto) 0.1 10 ^3/uL (0-0.2) Nucleated Red Blood Cells 0.0 % Sodium Level 141 mmol/L (136-145) Potassium Level 4.1 mmol/L (3.5-5.1) Chloride Level 108 mmol/L (98-107) Carbon Dioxide Level 25 mmol/L (20-31) Anion Gap 8 (5-15) Blood Urea Nitrogen 16 mg/dL (9-23) Creatinine 0.76 mg/dL (0.550-1.02) Glomerular Filtration Rate Calc 97 mL/min (>90) BUN/Creatinine Ratio 21.1 (10.0-20.0) Serum Glucose 106 mg/dL (74-106) Calcium Level 9.4 mg/dL (8.7-10.4) Magnesium Level 2.1 mg/dL (1.6-2.6) Total Bilirubin 0.5 mg/dL (0.2-1.0) Aspartate Amino Transf (AST/SGOT) 28 U/L (13-40) Alanine Aminotransferase (ALT/SGPT) 21 U/L (7-40) Alkaline Phosphatase 126 U/L (46-116) Total Protein 6.4 g/dL (5.7-8.2) Albumin 4.0 g/dL (3.2-4.8) Appearance: Older than stated age Psychomotor activity: Restless Behavioral: Cooperative Eye contact: Appropriate Speech: WNL Affect: Appropriate, Mood Congruent Mood: Anxious Thought processes: Linear/Goal-directed Thought content: WNL Suicidal ideations: Absent Homicidal ideations: Absent Orientation: Person, Place, Time, Situation Memory intact: Recent Intellect: Average Abstractability: WNL Concentration: Adequate Attention: Adequate Judgement: WNL Insight: Fair Vitals Vital Signs Date Time Temp Pulse Resp B/P (MAP) Pulse Ox O2 Delivery O2 Flow Rate FiO2 08/30/24 09:47 86 152/81 08/30/24 08:50 96 Room Air 0.0 08/30/24 08:50 21 08/30/24 08:30 98.3 18 98.3 Current medications Current Medications Medications Dose Ordered Sig/Herbert Route Start Time Stop Time Status Last Admin Dose Admin Aspirin 81 mg DAILY PO 08/30/24 10:00 08/30/24 09:47 81 MG Atorvastatin Calcium 80 mg HS PO 08/29/24 22:00 08/29/24 21:14 80 MG Enoxaparin Sodium 40 mg DAILY SC 08/30/24 10:00 08/30/24 09:47 40 MG Acetaminophen 650 mg Q4HP PRN PO 08/29/24 04:30 08/29/24 13:14 650 MG Ceftriaxone Sodium 50 ml @ 100 mls/hr DAILY@09 IV 08/30/24 09:00 08/30/24 09:46 100 MLS/HR Metoprolol Succinate 25 mg DAILY PO 08/29/24 11:45 08/30/24 09:47 25 MG Acetaminophen/ Hydrocodone Bitart 1 tab Q4HPRN PRN PO 08/29/24 11:45 08/30/24 00:39 1 TAB Empaglifozin 10 mg DAILY PO 08/30/24 10:15 08/30/24 11:26 10 MG Spironolactone 25 mg DAILY PO 08/30/24 10:15 08/30/24 11:25 25 MG Sacubitril/ Valsartan 1 tab BID PO 08/31/24 22:00 Treatment plan discussed: With staff Medication adjusted: Yes Labs ordered: No Psychotherapy provided: No Type: Voluntary History of Present Illness Reason for Consult : psychiatric evaluation PER H&P:This is a 48-year-old female with past medical history of hypertension and anxiety came to the hospital due to chest pain for 1 day. Per patient, the patient has intermittent midsternal chest pain, burning in nature, 05/10 in intensity. She also reports left-sided weakness (progressive weakness of left upper and lower limb since 2 days, and could not walk since today morning), cough and headache. Due to left lower limb weakness occupation could not walk since 1 day and has been been wheelchair-bound. She denies fever, headache, visual disturbance, nausea, vomiting, and any recent bowel and bladder habit changes. She also has history of left-sided weakness 1 month back, which was evaluated in ER and was recommended to follow up on outpatient basis. On physical examination patient had left upper and lower limb weakness with power 2/5. PMHx: Hypertension and anxiety Social history: Smokes cigarettes, denies any other drug use Home medication: Does not take any medicine Allergic history: No known allergies PSYCHIATRIST HPI: The patient was seen and evaluated at [facility] via telepsychiatry platform. 48 yr old female reported that she has been feeling anxious the past two years. She stated that she worries about many things all the time. Most recently she said she is really concerned about her 68 yr old mother who is currently hospitalized and concerned that something will h appen to her during surgery. She stated that she normally has good energy and sleeps about 8 hours a night. She reported she had poor sleep last night. She stated she has weakness in her left side so can't get up and go to the bathroom. She stated she worries when she has to go to the bathroom. She reported that she snores, but has never been tested for sleep apnea. She reported being treated for depression in the past, but never for anxiety. She denied having SI/HI/AVH. Past Psychiatric History :Two past hospitalizations No past suicide attempt. treated for depression in distant past. Current medications: none NKDA Past Medical History : hypertension, microcytic anemia, left sided weakness Substance Use: Smoked cigarettes since age 15. Current 1/2 ppd. Denied use of alcohol and other drug use, although UDS positive for amphetamines Social History : Lives in [place] with and four of her 9 children (oldest is 31). 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 DIAGNOSIS: UNSPECIFIED ANXIETY DISORDER Formulation: This 48 yr old female appears to suffer from anxiety which is likely multifactorial from conditions which can exacerbate and/or cause anxiety due to hypoxia. She has a body habitus and snoring which puts her at high risk for sleep apnea. She also has a microcytic anemia with MCV in 60s which could cause hypoxia and warrants further hematological work up if the cause of this is not known. She appears to have had a stroke and the brain injury could contribute to her anxiety. She would likely benefit from starting an SSRI to help reduce her anxiety. Plan: 1. Please refer to the following [employer] article on safe antidepressants for stroke survivors: https://newsroom.heart.org/news/5-ukmlbs-sklln-aw-wxugdqsdiwyghgo-daks-safe-for- wtpo-odfjey-pomqlzdxj 2. Legal-voluntary. Recommend a sleep study to evaluate for obstructive sleep apnea and need for CPAP. Recommend hematological work up for etiology of microcytic anemia. 3. Medications: Recommend starting Lexapro 10mg qam for anxiety. If sleep is an issue, I recommend starting mirtazapine 15mg qhs prn insomnia. 4. Case discussed with LEANDRO Hernandez. 5. Please recontact psychiatry for further follow up or reevaluation. Assessment/Diagnosis/Plan Reviewed: Labs, Medications, Previous Orders ELLY PERRY MD Aug 30, 2024 11:38
--- NOTE | 2024-08-30 16:39 | DVHPNRES ---
Progress Note Date Seen: Aug 31, 2024 Resident Creating Document: MAYDA JAIN RESIDENT Has the PT tested + for MRSA If YES, has PT been informed?: No Medical Necessity Reason Pt with a Central, PICC or Fol: No Subjective Review of Systems This is a 48-year-old female with past medical history of hypertension and anxiety came to the hospital due to chest pain for 1 day. Per patient, the patient has intermittent midsternal chest pain, burning in nature, 05/10 in intensity. She also reports left-sided weakness (progressive weakness of left upper and lower limb since 2 days, and could not walk since today morning), cough and headache. Due to left lower limb weakness occupation could not walk since 1 day and has been been wheelchair-bound. She denies fever, headache, visual disturbance, nausea, vomiting, and any recent bowel and bladder habit changes. She also has history of left-sided weakness 1 month back, which was evaluated in ER and was recommended to follow up on outpatient basis. PMHx: Hypertension and anxiety Social history: Smokes cigarettes, denies any other drug use Home medication: Does not take any medicine Allergic history: No known allergies Objective vital signs Vital Sign Date Time Temp Pulse Resp B/P (MAP) Pulse Ox O2 Delivery O2 Flow Rate FiO2 08/30/24 16:33 97.9 80 18 164/84 (110) 97 97.9 08/30/24 10:00 Nasal Cannula 2.0 08/30/24 08:50 21 Total Intake and Output 08/29/24 08/29/24 08/30/24 15:00 23:00 07:00 Intake Total 0 ml 600 ml Output Total 200 ml 2300 ml Balance -200 ml -1700 ml medications Current Medications Medications Dose Ordered Sig/Herbert Route Start Time Stop Time Status Last Admin Dose Admin Aspirin 81 mg DAILY PO 08/30/24 10:00 08/30/24 09:47 81 MG Atorvastatin Calcium 80 mg HS PO 08/29/24 22:00 08/29/24 21:14 80 MG Enoxaparin Sodium 40 mg DAILY SC 08/30/24 10:00 08/30/24 09:47 40 MG Acetaminophen 650 mg Q4HP PRN PO 08/29/24 04:30 08/29/24 13:14 650 MG Ceftriaxone Sodium 50 ml @ 100 mls/hr DAILY@09 IV 08/30/24 09:00 08/30/24 09:46 100 MLS/HR Metoprolol Succinate 25 mg DAILY PO 08/29/24 11:45 08/30/24 09:47 25 MG Acetaminophen/ Hydrocodone Bitart 1 tab Q4HPRN PRN PO 08/29/24 11:45 08/30/24 00:39 1 TAB Empaglifozin 10 mg DAILY PO 08/30/24 10:15 08/30/24 11:26 10 MG Spironolactone 25 mg DAILY PO 08/30/24 10:15 08/30/24 11:25 25 MG Sacubitril/ Valsartan 1 tab BID PO 08/31/24 22:00 Examination General: The patient is well-developed and well-nourished with no acute distress. Mental Status: Awake and alert. Oriented to person, place, and time. Provides history poorly. Speech, Language, Higher Cortical Function: No evidence of aphasia or dysarthria. Cranial Nerves: Visual dennis intact to confrontation. Pupils are equal, round, and reactive to light. Extraocular movements are full and conjugate. Facial sensation is symmetric bilaterally. Mandibular strength is intact. Facial muscles show normal movement. No asymmetry. Hearing grossly normal to voice. Uvula midline and symmetrical rise of the soft palate. Swallow and voice are normal. Tongue deviates slightly to the left without evidence of fasciculations or atrophy. Motor: Tone is normal in the upper and lower extremities. Muscle bulk is preserved. No fasciculations, abnormal movements, or posturing noted. Muscle strength in the right upper and lower extremities is 5/5. Left upper and lower extremities demonstrate decreased strength: 1-2/5 in the left proximal upper extremity. 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 Reflexes: Deep tendon reflexes are intact. No pathological reflexes. laboratory and microbiology Laboratory Tests 08/30/24 06:09 Test 08/30/24 06:09 Range/Units Serum Glucose 106 74-106 mg/dL Problem List/Assessment/Plan Problem List/Assessment/Plan #Acute stroke: Moderately large right anterior cerebral artery territorial pericallosal infarct MRI: Moderately large right anterior cerebral artery territorial pericallosal infarct involving the right aspect of the genu and body of corpus callosum with scattered subcentimeter foci of ischemia in precentral gyrus subcortical region posteriorly and medial frontal subcortical region anteriorly. #New onset Chronic systolic heart failure #Hypokalemia #PVCs #Chest pain #UTI? #Meth abuse #Anemia (hypochromic and micorcytosis) #Possible thalassemia trait #Anxiety NO IV BP MEDS: permissive hypertension Patient is out of window for thrombolysis Aspirin Statin Per Dr Rojas atorvastatin 40 mg Metoprolol low dose due to PVCs: discussed with Dr Bob Saavedra GMDT: entresto 50 BID Spironoloactone 25 mg Jardiance 10 mg PT evaluation for rehab K IV Ceftriaxone IV Citalopram 20 mg Case discussed with Dr Ricardo Time spent on care 23 min Plan discussed with: Patient, Other (rn) My Orders My Orders Orders - MAYDA JAIN RESIDENT Procedure Category Date Status Time Urine Bacterial DESIREE 08/29/24 Uncollected Culture 22:44 Empagliflozin PHA 08/30/24 In Process (Jardiance) 10:15 Spironolactone PHA 08/30/24 In Process (Aldactone) 10:15 Sacubitril-Valsartan PHA 08/31/24 In Process (Entresto 24-26 Mg 22:00 * [employer] CONS 08/30/24 Transmitted Consult Date of Service: Aug 31, 2024 Billing Provider: JUAN MANUEL RICARDO MD Common Visit Codes: [id number] INP/OBS CARE(HIGH) MAYDA JAIN RESIDENT Aug 30, 2024 16:39 JUAN MANUEL RICARDO MD Sep 01, 2024 14:49
[2024-08-30] MEDS: ATORVASTATIN 20 MG TAB PO SCH (20:45)
--- NOTE | 2024-08-30 20:48 | DVHPN2 ---
Progress Note - Dictate Date Seen: Aug 30, 2024 Has the PT tested + for MRSA If YES, has PT been informed?: No Medical Necessity Reason Pt with a Central, PICC or Fol: No Subjective Ms. Lawson is a 48 years old right-handed female with a history of obesity, the patient was came to the hospital with a chief company of chest pain, but she was has other problems. She developed progressive weakness in the left arm and the leg when she was walking on 08/27/2024, and she was still able to walk and use the left arm and the leg; since the morning on 08/28/2024, she was not able to walk. I have seen and examined the patient, I have discussed with her nurse, his daughter, he keeps improving, she was much better, she walked today with physical therapist She was received tele psychiatry consultation, Lexapro 10 mg daily was recommended She has not received APAP yet UDS, 08/28/2024: Amphetamine Urinalysis, 08/28/2024: WBC: 10, urine leukocyte esterase: 1+ WBC/HB/PLT/MCV, 08/28/2024: 9.2/11.7/290/60.9 Lactic acid, 08/28/2024: 1 CMP, 08/28/2024: Unremarkable TG/HDL/LDL/HDL, 08/28/2024: 126/118/74/34 Echocardiogram, 08/29/2024: Technically difficult study. Difficult acoustic windows. Left atrial enlargement. Hypertrophied papillary muscle. Valves are structurally normal. Left ventricular function is slightly diminished. EF is about 40%. Mild global hypokinesis. Dyssynchrony and cardiac contractility secondary to bundle-branch block. Dopplers unremarkable. No pericardial effusion masses or vegetations discernibl Chest x-ray, 08/28/2024: No acute cardiopulmonary process CTA neck, head, 08/28/2024: 1. No acute intracranial abnormality. 2. Widely patent arteries in the head and neck without large vessel occlusion, significant stenosis, aneurysm, or AVM. No dissection. 3. Most of the maxillary teeth have been removed and dental caries and periapical lucencies in the remaining left maxillary teeth. vital signs Vital Sign Date Time Temp Pulse Resp B/P (MAP) Pulse Ox O2 Delivery O2 Flow Rate FiO2 08/30/24 16:33 97.9 80 18 164/84 (110) 97 97.9 08/30/24 10:00 Nasal Cannula 2.0 08/30/24 08:50 21 Total Intake and Output 08/29/24 08/29/24 08/30/24 15:00 23:00 07:00 Intake Total 0 ml 600 ml Output Total 200 ml 2300 ml Balance -200 ml -1700 ml medications Current Medications Medications Dose Ordered Sig/Herbert Route Start Time Stop Time Status Last Admin Dose Admin Aspirin 81 mg DAILY PO 08/30/24 10:00 08/30/24 09:47 81 MG Atorvastatin Calcium 80 mg HS PO 08/29/24 22:00 08/29/24 21:14 80 MG Enoxaparin Sodium 40 mg DAILY SC 08/30/24 10:00 08/30/24 09:47 40 MG Acetaminophen 650 mg Q4HP PRN PO 08/29/24 04:30 08/29/24 13:14 650 MG Ceftriaxone Sodium 50 ml @ 100 mls/hr DAILY@09 IV 08/30/24 09:00 08/30/24 09:46 100 MLS/HR Metoprolol Succinate 25 mg DAILY PO 08/29/24 11:45 08/30/24 09:47 25 MG Acetaminophen/ Hydrocodone Bitart 1 tab Q4HPRN PRN PO 08/29/24 11:45 08/30/24 00:39 1 TAB Empaglifozin 10 mg DAILY PO 08/30/24 10:15 08/30/24 11:26 10 MG Spironolactone 25 mg DAILY PO 08/30/24 10:15 08/30/24 11:25 25 MG Sacubitril/ Valsartan 1 tab BID PO 08/31/24 22:00 objective General: the patient is well developed and nourished. No acute distress. MENTAL STATUS: Awake and alert. Oriented to person, place, time, poor historian SPEECH, LANGUAGE, HIGHER CORTICAL FUNCTION: no aphasia or dysathria. CRANIAL NERVES: Pupils are equal, round and reactive. EOMs full and conjugate. Facial sensation intact in all three divisions bilaterally. Mandibular strength intact. Facial muscles symmetrical and strength intact. Tongue is deviated to left side. No fasciculations or atrophy. SENSATION: Sensation to touch and pinprick is normal. MOTOR: Normal tone in the upper and lower extremity. Normal muscle bulk. No fasciculations. No abnormal movements or posturing. Muscle strength of the major groups in the right extremities is 5/5. Muscle strength of the major groups in the left extremities is 4/5 except for 4-5/5 in the gripping. REFLEXES: Deep tendon reflexes is symmetrical. No pathological reflexes. CEREBELLAR/COORDINATION: Deferred laboratory and microbiology Laboratory Tests 08/30/24 06:09 Test 08/30/24 06:09 Range/Units Serum Glucose 106 74-106 mg/dL Problem List Acute left-sided hemiparesis, rule out acute stroke Acute left-sided weakness on 07/20/2024, ? Acute stroke UTI Obesity Sleep-related breathing disorder Anxiety Assessment/Plan Monitoring Supportive treatment Telemetry Plavix 75 mg daily for 21 days Aspirin 81 mg daily Lipitor 40 mg daily Celexa 20 mg daily A trial of APAP in the hospital Quit Substance abuse Tele psych consultation Re: Anxiety Up to chair Physical therapy More recommendation per clinical course This medical document was created using an electronic medical record system with [employer] dictation system. Although this document has been carefully reviewed, there may still be some phonetic and typographical errors. These areas are purely typographical due to imperfections of the software programs, and do not reflect any compromise in the patient's medical care Prognosis poor Plan discussed with: Patient, Daughter, Other MARIAH CESAR MD Aug 30, 2024 20:48
[2024-08-31] VITALS (10 sets, daily range): BP systolic 114–177; BP diastolic 65–99; PULSE 69–101; RESP 14–18; TEMP 97.4–98.4; O2SAT 93–100
[2024-08-31] MEDS: SENNA 8.6 MG TAB PO ONE (05:15)
[2024-08-31 06:50] LABS: Alanine Aminotransferase 22 U/L (7-40); Albumin 4.1 g/dL (3.2-4.8); Anion Gap 8 (5-15); Aspartate Aminotransferase 24 U/L (13-40); BUN/Creatinine Ratio 20.5 (10.0-20.0); Blood Urea Nitrogen 15 mg/dL (9-23); Calcium 9.4 mg/dL (8.7-10.4); Carbon Dioxide 25 mmol/L (20-31); Chloride 105 mmol/L (98-107); Potassium 3.8 mmol/L (3.5-5.1); Sodium 138 mmol/L (136-145)
[2024-08-31 06:51] LABS: Bilirubin, Total 0.6 mg/dL (0.2-1.0); Total Protein 6.7 g/dL (5.7-8.2)
[2024-08-31 07:06] LABS: Alkaline Phosphatase 135 U/L (46-116); Glucose 107 mg/dL (74-106)
[2024-08-31] MEDS: CLOPIDOGREL BISULFATE 75 MG TAB PO SCH (09:40)
[2024-08-31] MEDS: CITALOPRAM HYDROBR 20 MG TAB PO SCH (09:40)
[2024-08-31] MEDS ORDERED: EMPAGLIFLOZIN 10 MG TAB PO SCH (10:00)
[2024-08-31] MEDS ORDERED: LISINOPRIL 5 MG TAB PO SCH (10:00)
[2024-08-31] MEDS ORDERED: SPIRONOLACTONE 25 MG TAB PO SCH (10:00)
--- NOTE | 2024-08-31 10:04 | DVHPNRES ---
Progress Note Date Seen: Aug 31, 2024 Resident Creating Document: MAYDA JAIN RESIDENT Has the PT tested + for MRSA If YES, has PT been informed?: No Medical Necessity Reason Pt with a Central, PICC or Fol: No Subjective Review of Systems This is a 48-year-old female with past medical history of hypertension and anxiety came to the hospital due to chest pain for 1 day. Per patient, the patient has intermittent midsternal chest pain, burning in nature, 05/10 in intensity. She also reports left-sided weakness (progressive weakness of left upper and lower limb since 2 days, and could not walk since today morning), cough and headache. Due to left lower limb weakness occupation could not walk since 1 day and has been been wheelchair-bound. She denies fever, headache, visual disturbance, nausea, vomiting, and any recent bowel and bladder habit changes. She also has history of left-sided weakness 1 month back, which was evaluated in ER and was recommended to follow up on outpatient basis. PMHx: Hypertension and anxiety Social history: Smokes cigarettes, denies any other drug use Home medication: Does not take any medicine Allergic history: No known allergies Objective vital signs Vital Sign Date Time Temp Pulse Resp B/P (MAP) Pulse Ox O2 Delivery O2 Flow Rate FiO2 08/31/24 09:41 98 142/88 08/31/24 09:00 97.4 18 95 97.4 08/30/24 20:00 Nasal Cannula* 2 28 Total Intake and Output 08/30/24 08/30/24 08/31/24 15:00 23:00 07:00 Intake Total 50 ml 900 ml 1500 ml Output Total 2200 ml 1800 ml Balance 50 ml -1300 ml -300 ml medications Current Medications Medications Dose Ordered Sig/Herbert Route Start Time Stop Time Status Last Admin Dose Admin Aspirin 81 mg DAILY PO 08/30/24 10:00 08/31/24 09:39 81 MG Enoxaparin Sodium 40 mg DAILY SC 08/30/24 10:00 08/31/24 09:41 40 MG Acetaminophen 650 mg Q4HP PRN PO 08/29/24 04:30 08/29/24 13:14 650 MG Ceftriaxone Sodium 50 ml @ 100 mls/hr DAILY@09 IV 08/30/24 09:00 08/31/24 09:39 100 MLS/HR Metoprolol Succinate 25 mg DAILY PO 08/29/24 11:45 08/31/24 09:41 25 MG Acetaminophen/ Hydrocodone Bitart 1 tab Q4HPRN PRN PO 08/29/24 11:45 08/30/24 00:39 1 TAB Empaglifozin 10 mg DAILY PO 08/30/24 10:15 08/31/24 09:40 10 MG Spironolactone 25 mg DAILY PO 08/30/24 10:15 08/31/24 09:39 25 MG Sacubitril/ Valsartan 1 tab BID PO 08/31/24 22:00 Atorvastatin Calcium 40 mg HS PO 08/30/24 20:45 08/30/24 22:27 40 MG Clopidogrel Bisulfate 75 mg DAILY PO 08/31/24 10:00 09/21/25 23:00 08/31/24 09:40 75 MG Citalopram Hydrobromide 20 mg DAILY PO 08/31/24 10:00 08/31/24 09:40 20 MG Examination General: The patient is well-developed and well-nourished with no acute distress. Mental Status: Awake and alert. Oriented to person, place, and time. Provides history poorly. Speech, Language, Higher Cortical Function: No evidence of aphasia or dysarthria. Cranial Nerves: Visual dennis intact to confrontation. Pupils are equal, round, and reactive to light. Extraocular movements are full and conjugate. Facial sensation is symmetric bilaterally. Mandibular strength is intact. Facial muscles show normal movement. No asymmetry. Hearing grossly normal to voice. Uvula midline and symmetrical rise of the soft palate. Swallow and voice are normal. Tongue deviates slightly to the left without evidence of fasciculations or atrophy. Motor: Tone is normal in the upper and lower extremities. Muscle bulk is preserved. No fasciculations, abnormal movements, or posturing noted. Muscle strength in the right upper and lower extremities is 5/5. Left upper and lower extremities demonstrate decreased strength: 1-2/5 in the left proximal upper extremity. 3-4/5 in the left hand rail filler. Reflexes: Deep tendon reflexes are intact. No pathological reflexes. laboratory and microbiology Laboratory Tests 08/31/24 06:16 08/30/24 06:09 Test 08/31/24 06:16 Range/Units Serum Glucose 107 H 74-106 mg/dL Problem List/Assessment/Plan Problem List/Assessment/Plan #Acute stroke: Moderately large right anterior cerebral artery territorial pericallosal infarct MRI: Moderately large right anterior cerebral artery territorial pericallosal infarct involving the right aspect of the genu and body of corpus callosum with scattered subcentimeter foci of ischemia in precentral gyrus subcortical region posteriorly and medial frontal subcortical region anteriorly. #New onset Chronic systolic heart failure #Hypokalemia #PVCs #Chest pain #UTI? #Meth abuse #Anemia (hypochromic and micorcytosis) #Possible thalassemia trait #Anxiety NO IV BP MEDS: permissive hypertension Patient is out of window for thrombolysis Aspirin Statin Per Dr Rojas atorvastatin 40 mg Metoprolol low dose due to PVCs: discussed with Dr Bob Saavedra GMDT: entresto 50 BID Spironoloactone 25 mg Jardiance 10 mg PT for intensive rehab K IV Ceftriaxone IV Citalopram 20 mg Pending SNF placement for intensive rehab Case discussed with Dr Ricardo Time spent on care 23 min Plan discussed with: Patient, Other (rn) My Orders My Orders Orders - MAYDA JAIN RESIDENT Procedure Category Date Status Time Empagliflozin PHA 08/30/24 In Process (Jardiance) 10:15 Spironolactone PHA 08/30/24 In Process (Aldactone) 10:15 Sacubitril-Valsartan PHA 08/31/24 In Process (Entresto 24-26 Mg 22:00 * Quality Control Industrial Engineer CONS 08/30/24 Transmitted Consult Date of Service: Aug 31, 2024 Billing Provider: JUAN MANUEL RICARDO MD Common Visit Codes: [id number] INP/OBS CARE(MOD) MAYDA JAIN RESIDENT Aug 31, 2024 10:04 JUAN MANUEL RICARDO MD Sep 01, 2024 14:50
[2024-08-31 18:09] LABS: % Iron Saturation 6.5 % (15-50)
[2024-08-31] MEDS: SACUBITRIL-VALSARTAN 24mg/26mg TAB PO SCH (21:44)
[2024-09-01] VITALS (7 sets, daily range): BP systolic 109–147; BP diastolic 68–86; PULSE 65–84; RESP 17–20; TEMP 97.3–98.8; O2SAT 95–96
[2024-09-01 06:00] LABS: Basophils # (auto) 0.1 10 ^3/uL (0-0.2); Hemoglobin 10.8 g/dL (12.2-16.2)
[2024-09-01 06:02] LABS: Basophils % (auto) 0.6 % (0.0-2.0); Eosinophils # (auto) 0.8 10 ^3/uL (0-0.8); Hematocrit 34.3 % (36.0-46.0); Lymphocytes % (auto) 18.9 % (10.0-50.0); Mean Corpuscular Hemoglobin 19.4 pg (28.0-32.0); Mean Corpuscular Hgb Conc. 31.5 g/dL (32.0-36.0); Mean Corpuscular Volume 61.4 fL (80.0-100.0); Monocytes # (auto) 0.9 10 ^3/uL (0-1.3); Monocytes % (auto) 8.4 % (0.0-12.0); Neutrophils % (auto) 65.1 % (37.0-80.0); Nucleated Red Blood Cells % 0.1 %; Platelet Count (auto) 276 10^3/uL (140-450); Red Blood Cells 5.58 10^6/uL (4.0-5.20); Red Cell Distribution Width 20.1 % (11.8-14.3); White Blood Cell 10.8 10^3/uL (4.4-10.8)
[2024-09-01 06:09] LABS: Anisocytosis Slight; Hypochromia Marked; Platelet Estimate Adequate
[2024-09-01 06:15] LABS: Alanine Aminotransferase 21 U/L (7-40); Albumin 4.2 g/dL (3.2-4.8); Anion Gap 8 (5-15); Aspartate Aminotransferase 21 U/L (13-40); BUN/Creatinine Ratio 18.9 (10.0-20.0); Bilirubin, Total 0.6 mg/dL (0.2-1.0); Blood Urea Nitrogen 14 mg/dL (9-23); Calcium 9.7 mg/dL (8.7-10.4); Carbon Dioxide 24 mmol/L (20-31); Chloride 105 mmol/L (98-107); Potassium 4.1 mmol/L (3.5-5.1); Sodium 137 mmol/L (136-145)
[2024-09-01 06:17] LABS: Alkaline Phosphatase 135 U/L (46-116); Glucose 113 mg/dL (74-106)
--- NOTE | 2024-09-01 16:25 | DVHPNRES ---
Progress Note Date Seen: Sep 01, 2024 Resident Creating Document: JHAJEAGLE SpringPASCALE RESIDENT Has the PT tested + for MRSA If YES, has PT been informed?: No Medical Necessity Reason Pt with a Central, PICC or Fol: No Subjective Review of Systems Patient seen and examined at bedside Left side weakness is improving and the patient was able to walk with minimal support with the physical therapy. Pending placement at SNF Objective vital signs Vital Sign Date Time Temp Pulse Resp B/P (MAP) Pulse Ox O2 Delivery O2 Flow Rate FiO2 09/01/24 13:00 97.3 70 20 131/86 (101) 95 97.3 09/01/24 08:00 Room Air* 0 21 Total Intake and Output 08/31/24 08/31/24 09/01/24 15:00 23:00 07:00 Intake Total 50 ml 800 ml 880 ml Output Total 1400 ml Balance 50 ml -600 ml 880 ml medications Current Medications Medications Dose Ordered Sig/Herbert Route Start Time Stop Time Status Last Admin Dose Admin Aspirin 81 mg DAILY PO 08/30/24 10:00 09/01/24 12:07 81 MG Enoxaparin Sodium 40 mg DAILY SC 08/30/24 10:00 09/01/24 14:19 40 MG Acetaminophen 650 mg Q4HP PRN PO 08/29/24 04:30 09/01/24 12:11 650 MG Ceftriaxone Sodium 50 ml @ 100 mls/hr DAILY@09 IV 08/30/24 09:00 09/01/24 09:53 100 MLS/HR Metoprolol Succinate 25 mg DAILY PO 08/29/24 11:45 09/01/24 12:09 25 MG Acetaminophen/ Hydrocodone Bitart 1 tab Q4HPRN PRN PO 08/29/24 11:45 08/30/24 00:39 1 TAB Empaglifozin 10 mg DAILY PO 08/30/24 10:15 09/01/24 12:08 10 MG Spironolactone 25 mg DAILY PO 08/30/24 10:15 09/01/24 12:08 25 MG Sacubitril/ Valsartan 1 tab BID PO 08/31/24 22:00 09/01/24 12:08 1 TAB Atorvastatin Calcium 40 mg HS PO 08/30/24 20:45 08/31/24 21:45 40 MG Clopidogrel Bisulfate 75 mg DAILY PO 08/31/24 10:00 09/21/25 23:00 09/01/24 12:08 75 MG Citalopram Hydrobromide 20 mg DAILY PO 08/31/24 10:00 09/01/24 12:08 20 MG Examination General: The patient is well-developed and well-nourished with no acute distress. Mental Status: Awake and alert. Oriented to person, place, and time. Provides history poorly. Speech, Language, Higher Cortical Function: No evidence of aphasia or dysarthria. Cranial Nerves: Visual dennis intact to confrontation. Pupils are equal, round, and reactive to light. Extraocular movements are full and conjugate. Facial sensation is symmetric bilaterally. Mandibular strength is intact. Facial muscles show normal movement. No asymmetry. Hearing grossly normal to voice. Uvula midline and symmetrical rise of the soft palate. Swallow and voice are normal. Tongue deviates slightly to the left without evidence of fasciculations or atrophy. Motor: Tone is normal in the upper and lower extremities. Muscle bulk is preserved. No fasciculations, abnormal movements, or posturing noted. Muscle strength in the right upper and lower extremities is 5/5. Left upper and lower extremities demonstrate decreased strength: 4/5 in the left proximal upper extremity. 3-4/5 in the left hand optical scientist. laboratory and microbiology Laboratory Tests 09/01/24 05:29 Test 09/01/24 05:29 Range/Units Serum Glucose 113 H 74-106 mg/dL Problem List/Assessment/Plan Problem List/Assessment/Plan #Acute stroke: Moderately large right anterior cerebral artery territorial pericallosal infarct MRI: Moderately large right anterior cerebral artery territorial pericallosal infarct involving the right aspect of the genu and body of corpus callosum with scattered subcentimeter foci of ischemia in precentral gyrus subcortical region posteriorly and medial frontal subcortical region anteriorly. #New onset Chronic systolic heart failure #Hypokalemia #PVCs #Chest pain #UTI? #Meth abuse #Anemia (hypochromic and micorcytosis) #Possible thalassemia trait #Anxiety NO IV BP MEDS: permissive hypertension Patient is out of window for thrombolysis Aspirin Statin Per Dr Rojas atorvastatin 40 mg Metoprolol low dose due to PVCs: discussed with Dr Rojas Start GMDT: entresto 50 BID Spironoloactone 25 mg Jardiance 10 mg PT for intensive rehab Citalopram 20 mg Pending SNF placement for intensive rehab Case discussed with Dr Ricardo Time spent on care 23 min Plan discussed with: Patient Date of Service: Sep 01, 2024 Billing Provider: JUAN MANUEL RICARDO MD Common Visit Codes: [id number] INP/OBS CARE(MOD) ADAM BONNER RESIDENT Sep 01, 2024 16:25 JUAN MANUEL RICARDO MD Sep 01, 2024 18:37
[2024-09-01] MEDS: FERROUS SULFATE 325mg EC TAB PO SCH (18:00)
--- NOTE | 2024-09-01 20:15 | DVHPN2 ---
Progress Note - Dictate Date Seen: Sep 01, 2024 Has the PT tested + for MRSA If YES, has PT been informed?: No Medical Necessity Reason Pt with a Central, PICC or Fol: No Subjective Ms. Lawson is a 48 years old right-handed female with a history of obesity, the patient was came to the hospital with a chief company of chest pain, but she was has other problems. She developed progressive weakness in the left arm and the leg when she was walking on 08/27/2024, and she was still able to walk and use the left arm and the leg; since the morning on 08/28/2024, she was not able to walk. I have seen and examined the patient, I have discussed with her nurse, HER CHILDREN, she keeps improving, she is alert and fully oriented, the muscle power in the left extremity is 4/5, no new complaints She was claustrophobia, she did not tolerate APAP UDS, 08/28/2024: Amphetamine Urinalysis, 08/28/2024: WBC: 10, urine leukocyte esterase: 1+ WBC/HB/PLT/MCV, 08/28/2024: 9.2/11.7/290/60.9 Lactic acid, 08/28/2024: 1 CMP, 08/28/2024: Unremarkable TG/HDL/LDL/HDL, 08/28/2024: 126/118/74/34 Echocardiogram, 08/29/2024: Technically difficult study. Difficult acoustic windows. Left atrial enlargement. Hypertrophied papillary muscle. Valves are structurally normal. Left ventricular function is slightly diminished. EF is about 40%. Mild global hypokinesis. Dyssynchrony and cardiac contractility secondary to bundle-branch block. Dopplers unremarkable. No pericardial effusion masses or vegetations discernibl Chest x-ray, 08/28/2024: No acute cardiopulmonary process CTA neck, head, 08/28/2024: 1. No acute intracranial abnormality. 2. Widely patent arteries in the head and neck without large vessel occlusion, significant stenosis, aneurysm, or AVM. No dissection. 3. Most of the maxillary teeth have been removed and dental caries and periapical lucencies in the remaining left maxillary teeth. vital signs Vital Sign Date Time Temp Pulse Resp B/P (MAP) Pulse Ox O2 Delivery O2 Flow Rate FiO2 09/01/24 13:00 97.3 70 20 131/86 (101) 95 97.3 09/01/24 08:00 Room Air* 0 21 Total Intake and Output 08/31/24 08/31/24 09/01/24 15:00 23:00 07:00 Intake Total 50 ml 800 ml 880 ml Output Total 1400 ml Balance 50 ml -600 ml 880 ml medications Current Medications Medications Dose Ordered Sig/Herbert Route Start Time Stop Time Status Last Admin Dose Admin Aspirin 81 mg DAILY PO 08/30/24 10:00 09/01/24 12:07 81 MG Enoxaparin Sodium 40 mg DAILY SC 08/30/24 10:00 09/01/24 14:19 40 MG Acetaminophen 650 mg Q4HP PRN PO 08/29/24 04:30 09/01/24 12:11 650 MG Metoprolol Succinate 25 mg DAILY PO 08/29/24 11:45 09/01/24 12:09 25 MG Acetaminophen/ Hydrocodone Bitart 1 tab Q4HPRN PRN PO 08/29/24 11:45 08/30/24 00:39 1 TAB Empaglifozin 10 mg DAILY PO 08/30/24 10:15 09/01/24 12:08 10 MG Spironolactone 25 mg DAILY PO 08/30/24 10:15 09/01/24 12:08 25 MG Sacubitril/ Valsartan 1 tab BID PO 08/31/24 22:00 09/01/24 12:08 1 TAB Atorvastatin Calcium 40 mg HS PO 08/30/24 20:45 08/31/24 21:45 40 MG Clopidogrel Bisulfate 75 mg DAILY PO 08/31/24 10:00 09/21/25 23:00 09/01/24 12:08 75 MG Citalopram Hydrobromide 20 mg DAILY PO 08/31/24 10:00 09/01/24 12:08 20 MG Ferrous Sulfate 325 mg BIDWM PO 09/01/24 18:00 09/01/24 18:00 325 MG objective General: the patient is well developed and nourished. No acute distress. MENTAL STATUS: Awake and alert. Oriented to person, place, time, poor historian SPEECH, LANGUAGE, HIGHER CORTICAL FUNCTION: no aphasia or dysathria. CRANIAL NERVES: Pupils are equal, round and reactive. EOMs full and conjugate. Facial sensation intact in all three divisions bilaterally. Mandibular strength intact. Facial muscles symmetrical and strength intact. Tongue is deviated to left side. No fasciculations or atrophy. SENSATION: Sensation to touch and pinprick is normal. MOTOR: Normal tone in the upper and lower extremity. Normal muscle bulk. No fasciculations. No abnormal movements or posturing. Muscle strength of the major groups in the right extremities is 5/5. Muscle strength of the major groups in the left extremities is 4/5 except for 4-5/5 in the gripping. REFLEXES: Deep tendon reflexes is symmetrical. No pathological reflexes. CEREBELLAR/COORDINATION: Deferred laboratory and microbiology Laboratory Tests 09/01/24 05:29 Test 09/01/24 05:29 Range/Units Serum Glucose 113 H 74-106 mg/dL Problem List Acute left-sided hemiparesis, rule out acute stroke Acute left-sided weakness on 07/20/2024, ? Acute stroke UTI Obesity Sleep-related breathing disorder Anxiety Assessment/Plan Monitoring Supportive treatment Telemetry Plavix 75 mg daily for 21 days Aspirin 81 mg daily Lipitor 40 mg daily Celexa 20 mg daily A trial of APAP in the hospital Quit Substance abuse Tele psych consultation Re: Anxiety Up to chair Physical therapy I have advised her to decide with her family doctor Re: Sleep medicine evaluation More recommendation per clinical course This medical document was created using an electronic medical record system with [employer] dictation system. Although this document has been carefully reviewed, there may still be some phonetic and typographical errors. These areas are purely typographical due to imperfections of the software programs, and do not reflect any compromise in the patient's medical care Prognosis poor Plan discussed with: Patient, Daughter, Son, Other MARIAH CESAR MD Sep 01, 2024 20:15
[2024-09-02] VITALS (9 sets, daily range): BP systolic 124–144; BP diastolic 69–83; PULSE 62–80; RESP 12–21; TEMP 97.7–98.8; O2SAT 94–97
[2024-09-02 07:16] LABS: Basophils # (auto) 0.1 10 ^3/uL (0-0.2); Hematocrit 37.1 % (36.0-46.0); Hemoglobin 11.5 g/dL (12.2-16.2); Lymphocytes # (auto) 2.4 10 ^3/uL (0.4-5.4); Mean Corpuscular Hemoglobin 19.1 pg (28.0-32.0); Monocytes # (auto) 0.7 10 ^3/uL (0-1.3); Nucleated Red Blood Cells % 0.1 %; Platelet Count (auto) 325 10^3/uL (140-450)
[2024-09-02 07:21] LABS: Eosinophils # (auto) 0.9 10 ^3/uL (0-0.8); Eosinophils % (auto) 9.3 % (0.0-7.0); Lymphocytes % (auto) 24.3 % (10.0-50.0); Mean Corpuscular Volume 61.6 fL (80.0-100.0); Monocytes % (auto) 7.1 % (0.0-12.0); Neutrophils # (auto) 5.6 10 ^3/uL (1.6-8.6); Neutrophils % (auto) 58.3 % (37.0-80.0); Red Blood Cells 6.03 10^6/uL (4.0-5.20); Red Cell Distribution Width 20.2 % (11.8-14.3); White Blood Cell 9.7 10^3/uL (4.4-10.8)
--- NOTE | 2024-09-02 17:11 | DVHPNRES ---
Progress Note Date Seen: Sep 02, 2024 Resident Creating Document: MELIZA HERNANDEZ RESIDENT Has the PT tested + for MRSA If YES, has PT been informed?: No Medical Necessity Reason Pt with a Central, PICC or Fol: No Subjective Review of Systems Kaycee Lawson is a 48-year-old female patient who presents to the hospital due to chest pain for 1 day. Per patient, the patient has intermittent midsternal chest pain, burning in nature, 05/10 in intensity. She also reports left-sided weakness (progressive weakness of left upper and lower limb since 2 days, and could not walk since today morning), cough and headache. She also has history of left-sided weakness 1 month back, which was evaluated in ER and was recommended to follow up on outpatient basis. Past medical history: Hypertension and anxiety Surgical history: Denies Family history: Noncontributory Social history: Lives with son and daughter in [place]. Smokes cigarettes, denies any other drug use (UDS positive for amphetamines, she denies any use) Allergic history: No known allergies Home medication: Denies Patient is seen and examined at bedside. Currently asthma strength on left side, has been able to walk alone with the assistance of walker. Objective vital signs Vital Sign Date Time Temp Pulse Resp B/P (MAP) Pulse Ox O2 Delivery O2 Flow Rate FiO2 09/02/24 12:30 98.0 69 12 136/73 (94) 94 98.0 09/02/24 10:00 Room Air 0.0 09/02/24 08:00 21 Total Intake and Output 09/01/24 09/01/24 09/02/24 15:00 23:00 07:00 Intake Total 500 ml 350 ml 950 ml Output Total 0 ml 600 ml Balance 500 ml 350 ml 350 ml medications Current Medications Medications Dose Ordered Sig/Herbert Route Start Time Stop Time Status Last Admin Dose Admin Aspirin 81 mg DAILY PO 08/30/24 10:00 09/02/24 10:14 81 MG Enoxaparin Sodium 40 mg DAILY SC 08/30/24 10:00 09/02/24 10:16 40 MG Acetaminophen 650 mg Q4HP PRN PO 08/29/24 04:30 09/02/24 12:24 650 MG Metoprolol Succinate 25 mg DAILY PO 08/29/24 11:45 09/02/24 10:15 25 MG Acetaminophen/ Hydrocodone Bitart 1 tab Q4HPRN PRN PO 08/29/24 11:45 08/30/24 00:39 1 TAB Empaglifozin 10 mg DAILY PO 08/30/24 10:15 09/02/24 10:15 10 MG Spironolactone 25 mg DAILY PO 08/30/24 10:15 09/02/24 10:14 25 MG Sacubitril/ Valsartan 1 tab BID PO 08/31/24 22:00 09/02/24 10:14 1 TAB Atorvastatin Calcium 40 mg HS PO 08/30/24 20:45 09/01/24 23:13 40 MG Clopidogrel Bisulfate 75 mg DAILY PO 08/31/24 10:00 09/21/25 23:00 09/02/24 10:15 75 MG Citalopram Hydrobromide 20 mg DAILY PO 08/31/24 10:00 09/02/24 10:14 20 MG Ferrous Sulfate 325 mg BIDWM PO 09/01/24 18:00 09/02/24 10:14 325 MG Examination Patient lying in bed, in no acute distress General: Lucid, afebrile, mucosae are moist Cardiovascular: Normal S1 and S2. No murmurs, gallops or rubs Respiratory: Normal ventilation mechanics. Clear lung sounds on auscultation Abdomen: Soft, nontender, no organomegaly, normal bowel sounds MSK/skin: Mobilizes 4 limbs. Skin is dry and warm Neurological: Oriented in 3 spheres. Mild left brachial and cool weakness, altered gait, rest of motor and sensory evaluation within normal limits. Pupils are isocoric and reactive laboratory and microbiology Laboratory Tests 09/02/24 05:50 09/01/24 05:29 Test 09/01/24 05:29 Range/Units Serum Glucose 113 H 74-106 mg/dL Problem List/Assessment/Plan Problem List/Assessment/Plan # Acute anterior ischemic stroke Initially completed head [facility] CT which showed no acute intracranial process, normal neck blood vessels (no stenosis/aneurysm/dissection). Head MRI: Moderate large right anterior cerebral artery territorial pericallosal infarct involving the right aspect of the genu and body of corpus callosum with scattered subcentimeter foci of ischemia in precentral gyrus subcortical region posteriorly and medial frontal subcortical region anteriorly. Patient did not receive fibrinolytic since patient was out of the thrombolysis window (she presented symptoms when she woke up, more than 12 hours) Permissive hypertensive during the 1st 24-48 hours of symptoms. Currently completing PT sessions, is walking more than 41 ft with help of walker. Back [employer] on board: Planning discharge with home health for continued PT sessions. 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 #UTI Urine analysis presents plus two blood, esterase plus one and few bacteria Patient currently under empiric IV antibiotic (ceftriaxone) # Methamphetamine abuse # Anemia (hypochromic and micorcytosis) MCV 60.9 and RBCs 6.03. Could be thalassemia trait. Recommend electrophoresis as outpatient Iron deficient anemia. Indicated p.o. iron # Anxiety Evaluated by psychiatry who indicated optimizing psychotropic medication (Lexapro and mirtazapine) Discussed goals of care with patient for over 23 minutes: Full code status Case discussed with Dr Cardenas, patient, family (son) and nurses: Patient is recovering with physical therapy during admission. Currently no patient qualifies for home health with PT sessions. Planning discharge in 24 hours. Have discussed extensively in counseled on methamphetamine abuse cessation. Plan discussed with: Patient, Son My Orders My Orders Orders - MELIZA HERNANDEZ RESIDENT Procedure Category Date Status Time * Back [employer] CONS 09/02/24 Transmitted Consult 16:49 Date of Service: Sep 02, 2024 Billing Provider: JUAN MANUEL CARDENAS MD Common Visit Codes: [id number] INP/OBS CARE(HIGH) MELIZA HERNANDEZ RESIDENT Sep 02, 2024 17:11 JUAN MANUEL CARDENAS MD Sep 04, 2024 15:32
[2024-09-03] VITALS (8 sets, daily range): BP systolic 111–157; BP diastolic 64–99; PULSE 67–88; RESP 17–21; TEMP 97.6–98.4; O2SAT 91–98
[2024-09-03 07:01] LABS: Chloride 106 mmol/L (98-107); Sodium 137 mmol/L (136-145)
[2024-09-03 07:02] LABS: Anion Gap 8 (5-15); Calcium 9.7 mg/dL (8.7-10.4); Carbon Dioxide 23 mmol/L (20-31)
[2024-09-03 07:08] LABS: BUN/Creatinine Ratio 22.1 (10.0-20.0); Blood Urea Nitrogen 15 mg/dL (9-23)
[2024-09-03 07:10] LABS: Glucose 111 mg/dL (74-106)
[2024-09-03 07:15] LABS: Basophils # (auto) 0.1 10 ^3/uL (0-0.2); Hemoglobin 11.2 g/dL (12.2-16.2); Monocytes # (auto) 0.7 10 ^3/uL (0-1.3)
[2024-09-03 07:17] LABS: Eosinophils # (auto) 0.8 10 ^3/uL (0-0.8); Eosinophils % (auto) 8.6 % (0.0-7.0); Hematocrit 36.1 % (36.0-46.0); Lymphocytes # (auto) 2.3 10 ^3/uL (0.4-5.4); Lymphocytes % (auto) 23.9 % (10.0-50.0); Mean Corpuscular Hemoglobin 19.3 pg (28.0-32.0); Mean Corpuscular Hgb Conc. 31.1 g/dL (32.0-36.0); Mean Corpuscular Volume 61.9 fL (80.0-100.0); Monocytes % (auto) 7.2 % (0.0-12.0); Neutrophils # (auto) 5.8 10 ^3/uL (1.6-8.6); Neutrophils % (auto) 59.3 % (37.0-80.0); Nucleated Red Blood Cells % 0.1 %; Platelet Count (auto) 336 10^3/uL (140-450); Red Blood Cells 5.82 10^6/uL (4.0-5.20); Red Cell Distribution Width 20.2 % (11.8-14.3); White Blood Cell 9.8 10^3/uL (4.4-10.8)
[2024-09-03 09:19] LABS: Hypochromia Marked; Platelet Estimate Adequate
[2024-09-03 09:20] LABS: Anisocytosis Slight
[2024-09-03] MEDS ORDERED: ASPI-325 PO (10:19)
[2024-09-03] MEDS ORDERED: FER325T PO (10:19)
[2024-09-03] MEDS ORDERED: CLOP75TA70 PO (10:19)
[2024-09-03] MEDS ORDERED: EMPA1TAB PO (10:19)
[2024-09-03] MEDS ORDERED: ACET-1882 PO (10:19)
[2024-09-03] MEDS ORDERED: SPIR25TA PO (10:19)
[2024-09-03] MEDS ORDERED: ATOR20TA50 PO (10:19)
[2024-09-03] MEDS ORDERED: METO-6 PO (10:19)
[2024-09-03] MEDS ORDERED: SACU1TAB PO (10:19)
[2024-09-03] MEDS ORDERED: CITA-77 PO (10:19)
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
--- NOTE | 2024-09-03 13:44 | DVHDSRES ---
Discharge Summary Date of Admission Resident Creating Document: MELIZA HERNANDEZ RESIDENT Aug 28, 2024 at 23:26 Date of Discharge: Sep 03, 2024 Labs/Diagnostic Data: Laboratory Results Test 09/03/24 06:25 09/01/24 05:29 08/31/24 06:16 08/30/24 06:09 White Blood Count 9.8 10^3/uL (4.4-10.8) Red Blood Count 5.82 10^6/uL (4.0-5.20) Hemoglobin 11.2 g/dL (12.2-16.2) Hematocrit 36.1 % (36.0-46.0) Mean Corpuscular Volume 61.9 fL (80.0-100.0) Mean Corpuscular Hemoglobin 19.3 pg (28.0-32.0) Mean Corpuscular Hemoglobin Concent 31.1 g/dL (32.0-36.0) Red Cell Distribution Width 20.2 % (11.8-14.3) Platelet Count 336 10^3/uL (140-450) Mean Platelet Volume 8.8 fL (6.9-10.8) Neutrophils (%) (Auto) 59.3 % (37.0-80.0) Lymphocytes (%) (Auto) 23.9 % (10.0-50.0) Monocytes (%) (Auto) 7.2 % (0.0-12.0) Eosinophils (%) (Auto) 8.6 % (0.0-7.0) Basophils (%) (Auto) 1.0 % (0.0-2.0) Neutrophils # (Auto) 5.8 10 ^3/uL (1.6-8.6) Lymphocytes # (Auto) 2.3 10 ^3/uL (0.4-5.4) Monocytes # (Auto) 0.7 10 ^3/uL (0-1.3) Eosinophils # (Auto) 0.8 10 ^3/uL (0-0.8) Basophils # (Auto) 0.1 10 ^3/uL (0-0.2) Nucleated Red Blood Cells 0.1 % Platelet Estimate Adequate Hypochromasia (manual) Marked Anisocytosis (manual) Slight Microcytosis Marked Sodium Level 137 mmol/L (136-145) Potassium Level 4.0 mmol/L (3.5-5.1) Chloride Level 106 mmol/L (98-107) Carbon Dioxide Level 23 mmol/L (20-31) Anion Gap 8 (5-15) Blood Urea Nitrogen 15 mg/dL (9-23) Creatinine 0.68 mg/dL (0.550-1.02) Glomerular Filtration Rate Calc 107 mL/min (>90) BUN/Creatinine Ratio 22.1 (10.0-20.0) Serum Glucose 111 mg/dL (74-106) Calcium Level 9.7 mg/dL (8.7-10.4) Total Bilirubin 0.6 mg/dL (0.2-1.0) Aspartate Amino Transferase (AST) 21 U/L (13-40) Alanine Aminotransferase (ALT) 21 U/L (7-40) Alkaline Phosphatase 135 U/L (46-116) Total Protein 7.0 g/dL (5.7-8.2) Albumin 4.2 g/dL (3.2-4.8) Iron Level 25 ug/dL (50-170) Total Iron Binding Capacity 385 ug/dL (250-425) Percent Iron Saturation 6.5 % (15-50) Ferritin 6.1 ng/mL (10-291) Magnesium Level 2.1 mg/dL (1.6-2.6) Test 08/29/24 05:16 08/28/24 22:12 08/28/24 22:10 08/28/24 18:30 Hemoglobin A1c 5.4 % A1C (<5.7) Thyroid Stimulating Hormone (TSH) 2.43 uIU/mL (0.55-4.78) POC Glucose 106 mg/dl (70-106) Prothrombin Time 10.9 sec (9.3-11.8) Prothrombin Time INR 1.03 (0.9-1.15) Activated Partial Thromboplast Time 23.7 SEC (24.5-34.5) Triglycerides Level 126 mg/dL (< 150) Cholesterol Level 118 mg/dL (< 200) LDL Cholesterol 74 mg/dL (< 100) HDL Cholesterol 34 mg/dL (40-59) Troponin I High Sensitivity 7 ng/L (</=34) Test 08/28/24 18:29 08/28/24 17:07 08/28/24 15:46 Urine Color Yellow (Yellow) Urine Clarity Turbid (Clear) Urine pH 6.5 (5.0-9.0) Urine Specific [place] 1.022 (1.001-1.035) Urine Protein Trace (Negative) Urine Ketones Negative (Negative) Urine Blood 2+ /uL (Negative) Urine Nitrite Negative (Negative) Urine Bilirubin Negative (Negative) Urine Urobilinogen Normal mg/dL (Negative) Urine Leukocyte Esterase 1+ /uL (Negative) Urine RBC 2 /hpf (0 - 4) Urine Microscopic WBC 10 /HPF (0-5) Urine Squamous Epithelial Cells Few /hpf (<5) Urine Bacteria Few /hpf (None Seen) Urine Mucus Few (None Seen) Urine Glucose Normal mg/dL (Normal) Urine Opiates Screen Neg (NEGATIVE) Urine Fentanyl Screen Neg (NEGATIVE) Urine Barbiturates Screen Neg (NEGATIVE) Urine Phencyclidine Screen Neg (NEGATIVE) Urine Amphetamines Screen Pos (NEGATIVE) Urine Benzodiazepines Screen Neg (NEGATIVE) Urine Cocaine Screen Neg (NEGATIVE) Urine Cannabinoids Screen Neg (NEGATIVE) Lactic Acid Level 1.0 mmol/L (0.4-2.0) Stomatocytes Few Other Laboratory Tests 09/03/24 06:25 Brief Hx & Hospital Course: Kaycee Lawson is a 48-year-old female patient who presents to the hospital due to chest pain for 1 day. Per patient, the patient has intermittent midsternal chest pain, burning in nature, 05/10 in intensity. She also reports left-sided weakness (progressive weakness of left upper and lower limb since 2 days, and could not walk since today morning), cough and headache. She also has history of left-sided weakness 1 month back, which was evaluated in ER and was recommended to follow up on outpatient basis. Past medical history: Hypertension and anxiety Surgical history: Denies Family history: Noncontributory Social history: Lives with son and daughter in [place]. Smokes cigarettes, denies any other drug use (UDS positive for amphetamines, she denies any use) Allergic history: No known allergies Home medication: Denies Brief hospital course: Acute anterior ischemic stroke symptomatic by left hemiplegia associated with acute congestive heart failure secondary to methamphetamine abuse. Patient was out of thrombolysis window, requiring conservative treatment (aspirin, clopidogrel and statins), evaluated by Neurology specialist who optimize medical therapy and ordered complementary workup (Angio CT which showed no acute intracranial process, normal neck blood vessels (no stenosis/aneurysm/dissection. Head MRI: Moderate large right anterior cerebral artery territorial pericallosal infarct involving the right aspect of the genu and body of corpus callosum with scattered subcentimeter foci of ischemia in precentral gyrus subcortical region posteriorly and medial frontal subcortical region anteriorly). During her admission tele psych evaluation was completed which diagnosed her with anxiety, optimizing medication. On admission ruled out acute coronary syndrome (noncardiac chest pain, EKG with no ST alteration and negative troponin). Completed echocardiogram which showed LVEF of 40%, global hypokinesia, dyssynchrony of septum (probable secondary to bundle branch block). Patient is currently on GDMT. Have consult patient on polysubstance abuse cessation, patient reports no abuse (she believes she was intoxicated). She was also diagnosed with UTI, indicating empiric IV antibiotic (ceftriaxone for three days). Observe patient had iron deficient microcytic anemia with increase RBCs, indicating iron pills, and patient should follow up with PCP for eventual electrophoresis. Planning to discharge patient with home health with physical therapy, but in re-evaluation of physical therapist decided that patient would benefit and be safe for in a specialized nursing facility for rehab, patient agreed. Patient hemodynamically stable, with altered gait, in condition to be a recent discharge to SNF for physical therapy rehabilitation and stroke patient, awaiting bed availability. Was granted under optimal medical therapy, gave her advice on healthy lifestyle habits and follow-up with PCP, neurologist and public affairs manager. DIAGNOSIS # Acute anterior ischemic stroke # Methamphetamine cardiomyopathy, with acute on chronic systolic heart failure (HFrEF, LVEF 40%) New onset Chronic systolic heart failure # Hypokalemia # PVCs # Ruled out acute coronary syndrome # Noncardiac Chest pain - probable costochondritis # UTI # Methamphetamine abuse # Iron deficient microcytic anemia (hypochromic and micorcytosis) - probable thalassemia trait # Anxiety Discussed goals of care with patient for over 23 minutes: Full code status Case discussed with Dr Ricardo, patient and nurses Examination Patient lying in bed, in no acute distress General: Lucid, afebrile, mucosae are moist Cardiovascular: Normal S1 and S2. No murmurs, gallops or rubs Respiratory: Normal ventilation mechanics. Clear lung sounds on auscultation Abdomen: Soft, nontender, no organomegaly, normal bowel sounds MSK/skin: Mobilizes 4 limbs. Skin is dry and warm Neurological: Oriented in 3 spheres. Mild left brachial and cool weakness, altered gait, rest of motor and sensory evaluation within normal limits. Pupils are isocoric and reactive Operations or Procedures EXAM: Two-dimensional and M-mode echocardiogram with Doppler and color Doppler. Blood Pressure: 146/86 mmHg INDICATION CVA RISK FACTORS Height: 67, Weight: 241 DIMENSIONS LVDd (3.8-5.7cm) LA (2D) 5.1 (1.9-4.0cm) Aortic Root 3.5 (2.0- 3.7cm) LVDs (2.5-4.0cm) LA (MM) (1.9-4.0cm) Aortic Cusp Exc 2.0 (1.5- 2.0cm) EF (%) 55.0 (55-70%) Rt. Atrium 3.4 (1.9-4.0cm) Asc. Aorta cm Mitral Valve Mitral Mitral Stenosis E wave 1.01m/s MV Mean GR. mmHg A wave 1.62m/s MV Peak GR. 80mmHg E/A ratio 0.6 2D MVA cm2 DECEL Time 207ms PRESS 1/2 Time 65ms IVRT ms Dop MVA 3.36cm2 Aortic Valve Aortic Valve Aortic Stenosis V1 0.86m/s AO Mean GR. 5mmHg V2 1.55m/s AO Peak GR. 10mmHg LVOT Diameter 2.1 (1.8-2.4cm) Doppler RAGHU 1.92cm2 Pulmonic Valve V2 0.91m/s Other Information Technically limited study due to body habitus, patient position, patient moving and patient was non compliant during exam. Conclusion Technically difficult study. Difficult acoustic windows. Left atrial enlargement. Hypertrophied papillary muscle. Valves are structurally normal. Left ventricular function is slightly diminished. EF is about 40%. Mild global hypokinesis. Dyssynchrony and cardiac contractility secondary to bundle-branch block. Dopplers unremarkable. No pericardial effusion masses or vegetations discernible. SIGNED BY: MICHELLE CHAPMAN Sr., MD SIGNED DATE/TIME: 08/29/24 4802 EXAM: XR Chest, 1 View CLINICAL INDICATION: CP TECHNIQUE: Frontal view of the chest. COMPARISON: None FINDINGS: LUNGS AND PLEURAL SPACES: Unremarkable. No consolidation. No pneumothorax. HEART: Unremarkable. No cardiomegaly. MEDIASTINUM: Unremarkable. Normal mediastinal contour. BONES/JOINTS: Unremarkable. No acute fracture. OTHER FINDINGS: . None. . . .. IMPRESSION: No acute cardiopulmonary process. ATED BY: DALIA SCHWARTZ MD DICTATED DATE/TIME: 08/28/24 1617 EXAM: CT ANGIO HEAD/NECK CLINICAL HISTORY: POSS STROKE TECHNIQUE: CT angiogram of the head and neck was performed without and with intravenous contrast. ml of was administered intravenously. 3D MIP reconstructed images were created and archived on the PACS system. This exam was performed according to our departmental dose optimization program. Up-to-date CT equipment and radiation dose reduction techniques are utilized as appropriate. COMPARISON: None FINDINGS: CTA head: The ventricles and subarachnoid spaces are normal in size and configuration. The collado white matter interfaces are maintained There is no midline shift or mass effect. There is no evidence of acute intracranial hemorrhage. The basal cisterns are patent. The calvarium is intact. The distal internal carotid, vertebral, and basilar arteries are patent without focal narrowing or occlusion. The anterior, middle, and posterior cerebral arteries are patent without focal narrowing. No aneurysm or arteriovenous malformation is identified. CTA neck: The aortic arch vessel origins are widely patent. The common carotid and cervical portions of the internal carotid and vertebral arteries are patent without focal narrowing according to NASCET criteria. No aneurysm, AVM, or dissection is identified. The cervical soft tissues are unremarkable. The paranasal sinus and mastoid air cells are clear. The lung apices are clear. Multiple mandibular teeth have been removed. Most of the maxillary teeth have been removed. There is multilevel mild cervical spondylosis. Dental caries and periapical lucencies in remaining left maxillary teeth. IMPRESSION: 1. No acute intracranial abnormality. 2. Widely patent arteries in the head and neck without large vessel occlusion, significant stenosis, aneurysm, or AVM. No dissection. 3. Most of the maxillary teeth have been removed and dental caries and periapical lucencies in the remaining left maxillary teeth. ATED BY: STEPHON GUIDRY MD DICTATED DATE/TIME: 08/28/24 5284 EXAM: MRI BRAIN HEAD WO CONTRAST HISTORY: cva COMPARISON: CT angiogram dated 08/28/2024 TECHNIQUE: MRI was performed utilizing multiple appropriate imaging planes and pulse sequences. FINDINGS: SUPRATENTORIAL REGION: Acute ischemia noted in right side of rostrum, genu and body of corpus callosum, and its adjacent right frontoparietal subcortical regions extending posteriorly to precentral gyrus. No intracranial hemorrhage noted. There is no midline shift. POSTERIOR FOSSA: Unremarkable. BRAINSTEM: Unremarkable. SELLAR/SUPRASELLAR REGION: Unremarkable. VENTRICLES, CISTERNS, SULCI: Age-appropriate. ORBITS: Unremarkable. PARANASAL SINUSES: Unremarkable. MASTOID AIR CELLS: Unremarkable. VASCULATURE: Unremarkable. BONES/ SOFT TISSUES: Unremarkable. OTHER: None. IMPRESSION: 1. Moderately large right anterior cerebral artery territorial pericallosal infarct involving the right aspect of the genu and body of corpus callosum with scattered subcentimeter foci of ischemia in precentral gyrus subcortical region posteriorly and medial frontal subcortical region anteriorly. No mass effect, midline shift or hemorrhagic transformation. Critical Result: Stroke Alert Findings discussed with dr. Jolene Thakkar at 08/29/2024 09:33 AM, and acknowledged receipt and understanding of the findings. .. ATED BY: VANESSA FUENTES MD DICTATED DATE/TIME: 08/29/24939 Condition at Discharge: Fair Final Diagnosis/Problems List # Acute anterior ischemic stroke # Methamphetamine cardiomyopathy, with acute on chronic systolic heart failure (HFrEF, LVEF 40%) New onset Chronic systolic heart failure # Hypokalemia # PVCs # Ruled out acute coronary syndrome # Noncardiac Chest pain - probable costochondritis # UTI # Methamphetamine abuse # Iron deficient microcytic anemia (hypochromic and micorcytosis) - probable thalassemia trait # Anxiety Discharge Disposition: AMA Discharge Instruct/Medications Diet: Cardiac 2g Na,low cholest Activity: No Restrictions, As Tolerated Follow Up/Referral: PCP Neurology Cardiology Medications: Per EMR Discharge Statement: "Patient was advised to return to the ER or call 911 if any headaches, dizziness, shortness of breath, chest pain, abdominal pain, bleeding, fevers, or worsening of medical condition. Patient was counseled about treatment plan, medications, possible side effects, patientverbalized understanding. All questions were answered to the best of my ability. This discharge took greater then 30 minutes in planning, reviewing documentation, counseling the patient, and discussing with other team members." ASSESSMENT ASSESSMENT Assessment Acute anterior ischemic stroke Date of Service: Sep 03, 2024 Billing Provider: JUAN MANUEL RICARDO MD Common Visit Codes: 32646-VLU/OBS DISCH DAY >30min MELIZA HERNANDEZ RESIDENT Sep 03, 2024 13:44 JUAN MANUEL RICARDO MD Sep 04, 2024 15:34
[2024-09-04 01:00] VITALS: BP 136/81; PULSE 82; RESP 17; TEMP 97.8; O2SAT 100
[2024-09-04 05:00] VITALS: BP 144/98; PULSE 80; RESP 17; TEMP 97.2; O2SAT 98
[2024-09-04 09:00] VITALS: BP 137/82; PULSE 77; RESP 19; TEMP 97.7; O2SAT 99
[2024-09-04 10:00] VITALS: O2SAT 98
--- NOTE | 2024-09-04 11:29 | DVHPN2 ---
Progress Note - Dictate Date Seen: Sep 04, 2024 Has the PT tested + for MRSA If YES, has PT been informed?: No Medical Necessity Reason Pt with a Central, PICC or Fol: No Subjective Ms. Lawson is a 48 years old right-handed female with a history of obesity, the patient was came to the hospital with a chief company of chest pain, but she was has other problems. She developed progressive weakness in the left arm and the leg when she was walking on 08/27/2024, and she was still able to walk and use the left arm and the leg; since the morning on 08/28/2024, she was not able to walk. I have seen and examined the patient, I have discussed with her nurse, she keeps improving, she is alert and fully oriented, the muscle power in the left extremity is 4/5 "I want to go home today" UDS, 08/28/2024: Amphetamine Urinalysis, 08/28/2024: WBC: 10, urine leukocyte esterase: 1+ WBC/HB/PLT/MCV, 08/28/2024: 9.2/11.7/290/60.9 Lactic acid, 08/28/2024: 1 CMP, 08/28/2024: Unremarkable TG/HDL/LDL/HDL, 08/28/2024: 126/118/74/34 Echocardiogram, 08/29/2024: Technically difficult study. Difficult acoustic windows. Left atrial enlargement. Hypertrophied papillary muscle. Valves are structurally normal. Left ventricular function is slightly diminished. EF is about 40%. Mild global hypokinesis. Dyssynchrony and cardiac contractility secondary to bundle-branch block. Dopplers unremarkable. No pericardial effusion masses or vegetations discernibl Chest x-ray, 08/28/2024: No acute cardiopulmonary process CTA neck, head, 08/28/2024: 1. No acute intracranial abnormality. 2. Widely patent arteries in the head and neck without large vessel occlusion, significant stenosis, aneurysm, or AVM. No dissection. 3. Most of the maxillary teeth have been removed and dental caries and periapical lucencies in the remaining left maxillary teeth. vital signs Vital Sign Date Time Temp Pulse Resp B/P (MAP) Pulse Ox O2 Delivery O2 Flow Rate FiO2 09/04/24 10:12 77 137/82 09/04/24 09:00 97.7 19 99 97.7 09/03/24 20:00 Room Air* 0 21 Total Intake and Output 09/03/24 09/03/24 09/04/24 15:00 23:00 07:00 Intake Total 1300 ml 600 ml Balance 1300 ml 600 ml medications Current Medications Medications Dose Ordered Sig/Herbert Route Start Time Stop Time Status Last Admin Dose Admin Aspirin 81 mg DAILY PO 08/30/24 10:00 09/04/24 10:12 81 MG Enoxaparin Sodium 40 mg DAILY SC 08/30/24 10:00 09/04/24 10:13 40 MG Acetaminophen 650 mg Q4HP PRN PO 08/29/24 04:30 09/02/24 17:22 650 MG Metoprolol Succinate 25 mg DAILY PO 08/29/24 11:45 09/04/24 10:12 25 MG Acetaminophen/ Hydrocodone Bitart 1 tab Q4HPRN PRN PO 08/29/24 11:45 09/03/24 06:00 1 TAB Empaglifozin 10 mg DAILY PO 08/30/24 10:15 09/04/24 10:11 10 MG Spironolactone 25 mg DAILY PO 08/30/24 10:15 09/04/24 10:12 25 MG Sacubitril/ Valsartan 1 tab BID PO 08/31/24 22:00 09/04/24 10:11 1 TAB Atorvastatin Calcium 40 mg HS PO 08/30/24 20:45 09/03/24 21:16 40 MG Clopidogrel Bisulfate 75 mg DAILY PO 08/31/24 10:00 09/21/25 23:00 09/04/24 10:12 75 MG Citalopram Hydrobromide 20 mg DAILY PO 08/31/24 10:00 09/04/24 10:12 20 MG Ferrous Sulfate 325 mg BIDWM PO 09/01/24 18:00 09/04/24 08:15 325 MG objective General: the patient is well developed and nourished. No acute distress. MENTAL STATUS: Awake and alert. Oriented to person, place, time, poor historian SPEECH, LANGUAGE, HIGHER CORTICAL FUNCTION: no aphasia or dysathria. CRANIAL NERVES: Pupils are equal, round and reactive. EOMs full and conjugate. Facial sensation intact in all three divisions bilaterally. Mandibular strength intact. Facial muscles symmetrical and strength intact. Tongue is deviated to left side. No fasciculations or atrophy. SENSATION: Sensation to touch and pinprick is normal. MOTOR: Normal tone in the upper and lower extremity. Normal muscle bulk. No fasciculations. No abnormal movements or posturing. Muscle strength of the major groups in the right extremities is 5/5. Muscle strength of the major groups in the left extremities is 4/5 except for 4-5/5 in the gripping. REFLEXES: Deep tendon reflexes is symmetrical. No pathological reflexes. CEREBELLAR/COORDINATION: Deferred laboratory and microbiology Laboratory Tests 09/03/24 06:25 Test 09/03/24 06:25 Range/Units Serum Glucose 111 H 74-106 mg/dL Problem List Acute left-sided hemiparesis, rule out acute stroke Acute left-sided weakness on 07/20/2024, ? Acute stroke UTI Obesity Sleep-related breathing disorder Anxiety Assessment/Plan Monitoring Supportive treatment Telemetry Plavix 75 mg daily for 21 days Aspirin 81 mg daily Lipitor 40 mg daily Celexa 20 mg daily DVT Prophylaxis Quit Substance abuse Tele psych consultation Re: Anxiety Up to chair Physical therapy I have advised her to decide with her family doctor Re: Sleep medicine evaluation More recommendation per clinical course This medical document was created using an electronic medical record system with [employer] computerized dictation system. Although this document has been carefully reviewed, there may still be some phonetic and typographical errors. These areas are purely typographical due to imperfections of the software programs, and do not reflect any compromise in the patient's medical care Prognosis poor Plan discussed with: Patient, Other MARIAH CESAR MD Sep 04, 2024 11:29
--- NOTE | 2024-09-04 12:41 | ECG ---
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
[2024-09-04 13:00] VITALS: BP 126/79; PULSE 75; RESP 19; TEMP 97.4; O2SAT 92
--- NOTE | 2024-09-04 14:47 | DVHPNRES ---
Progress Note Date Seen: Sep 04, 2024 Resident Creating Document: MELIZA HERNANDEZ RESIDENT Has the PT tested + for MRSA If YES, has PT been informed?: No Medical Necessity Reason Pt with a Central, PICC or Fol: No Subjective Review of Systems Kaycee Lawson is a 48-year-old female patient who presents to the hospital due to chest pain for 1 day. Per patient, the patient has intermittent midsternal chest pain, burning in nature, 05/10 in intensity. She also reports left-sided weakness (progressive weakness of left upper and lower limb since 2 days, and could not walk since today morning), cough and headache. She also has history of left-sided weakness 1 month back, which was evaluated in ER and was recommended to follow up on outpatient basis. Past medical history: Hypertension and anxiety Surgical history: Denies Family history: Noncontributory Social history: Lives with son and daughter in [place]. Smokes cigarettes, denies any other drug use (UDS positive for amphetamines, she denies any use) Allergic history: No known allergies Home medication: Denies Patient is seen and examined at bedside. Currently has increased strength on left side, has been able to walk alone with the assistance of walker, but almost fell in multiple opportunities. Medical recommendation is discharge to SNF for PT sessions Objective vital signs Vital Sign Date Time Temp Pulse Resp B/P (MAP) Pulse Ox O2 Delivery O2 Flow Rate FiO2 09/04/24 13:00 97.4 75 19 126/79 (95) 92 97.4 09/03/24 20:00 Room Air* 0 21 Total Intake and Output 09/03/24 09/03/24 09/04/24 15:00 23:00 07:00 Intake Total 1300 ml 600 ml Balance 1300 ml 600 ml medications Current Medications Medications Dose Ordered Sig/Herbert Route Start Time Stop Time Status Last Admin Dose Admin Aspirin 81 mg DAILY PO 08/30/24 10:00 09/04/24 10:12 81 MG Enoxaparin Sodium 40 mg DAILY SC 08/30/24 10:00 09/04/24 10:13 40 MG Acetaminophen 650 mg Q4HP PRN PO 08/29/24 04:30 09/02/24 17:22 650 MG Metoprolol Succinate 25 mg DAILY PO 08/29/24 11:45 09/04/24 10:12 25 MG Acetaminophen/ Hydrocodone Bitart 1 tab Q4HPRN PRN PO 08/29/24 11:45 09/03/24 06:00 1 TAB Empaglifozin 10 mg DAILY PO 08/30/24 10:15 09/04/24 10:11 10 MG Spironolactone 25 mg DAILY PO 08/30/24 10:15 09/04/24 10:12 25 MG Sacubitril/ Valsartan 1 tab BID PO 08/31/24 22:00 09/04/24 10:11 1 TAB Atorvastatin Calcium 40 mg HS PO 08/30/24 20:45 09/03/24 21:16 40 MG Clopidogrel Bisulfate 75 mg DAILY PO 08/31/24 10:00 09/21/25 23:00 09/04/24 10:12 75 MG Citalopram Hydrobromide 20 mg DAILY PO 08/31/24 10:00 09/04/24 10:12 20 MG Ferrous Sulfate 325 mg BIDWM PO 09/01/24 18:00 09/04/24 08:15 325 MG Examination Patient lying in bed, in no acute distress General: Lucid, afebrile, mucosae are moist Cardiovascular: Normal S1 and S2. No murmurs, gallops or rubs Respiratory: Normal ventilation mechanics. Clear lung sounds on auscultation Abdomen: Soft, nontender, no organomegaly, normal bowel sounds MSK/skin: Mobilizes 4 limbs. Skin is dry and warm Neurological: Oriented in 3 spheres. Mild left brachial and crural weakness, altered gait, rest of motor and sensory evaluation within normal limits. Pupils are isocoric and reactive laboratory and microbiology Laboratory Tests 09/03/24 06:25 Test 09/03/24 06:25 Range/Units Serum Glucose 111 H 74-106 mg/dL Microbiology Date/Time Source Procedure Growth Status 09/02/24 16:30 Voided Urine Urine Culture - Preliminary Resulted Problem List/Assessment/Plan Problem List/Assessment/Plan # Acute anterior ischemic stroke Initially completed head [facility] CT which showed no acute intracranial process, normal neck blood vessels (no stenosis/aneurysm/dissection). Head MRI: Moderate large right anterior cerebral artery territorial pericallosal infarct involving the right aspect of the genu and body of corpus callosum with scattered subcentimeter foci of ischemia in precentral gyrus subcortical region posteriorly and medial frontal subcortical region anteriorly. Patient did not receive fibrinolytic since patient was out of the thrombolysis window (she presented symptoms when she woke up, more than 12 hours) Permissive hypertensive during the 1st 24-48 hours of symptoms. Currently completing PT sessions, presented multiple episodes of lower limb weakness with near falls. Record Changer on board: Planning discharge to SNF for continue PT sessions. 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 #UTI Urine analysis presents plus two blood, esterase plus one and few bacteria Patient currently under empiric IV antibiotic (ceftriaxone) # Methamphetamine abuse # Anemia (hypochromic and micorcytosis) MCV 60.9 and RBCs 6.03. Could be thalassemia trait. Recommend electrophoresis as outpatient Iron deficient anemia. Indicated p.o. iron # Anxiety Evaluated by psychiatry who indicated optimizing psychotropic medication (Lexapro and mirtazapine) Discussed goals of care with patient for over 23 minutes: Full code status Case discussed with Dr Cardenas, patient, family (son) and nurses: Patient is recovering with physical therapy during admission. PAtient will require discharge to SNF for PT sessions, since patient presented multiple lower limb weakness with near falls. Have discussed extensively in counseled on methamphetamine abuse cessation. Patient currently wants to leave hospital against medical advice. Have explained extensively the risks if she does so, including head trauma, re-stroke and . Patient understands and takes full responsibility of her actions. Plan discussed with: Patient, Daughter (Amanda), Other (Nurses (Stacia)) My Orders My Orders Orders - MELIZA HERNANDEZ Procedure Category Date Status Time Discontinue Tele BROCK 09/03/24 In Process 15:39 Transfer Orders XFER 09/03/24 Transmitted 15:39 Pt Request For Service PT 09/03/24 Logged 18:50 Date of Service: Sep 04, 2024 Billing Provider: JUAN MANUEL CARDENAS MD Common Visit Codes: [id number] INP/OBS CARE(HIGH) MELIZA HERNANDEZ Sep 04, 2024 14:47 JUAN MANUEL CARDENAS MD Sep 04, 2024 15:55
== END 2024-09-04 14:10 | disposition left against medical advice (07) | DRG 45 ==
LOC: ER 15:30 → TELE 23:26 → TELE-EAST 08-29 16:13 → OVERFLOW 09-03 15:04 → EAST 09-03 15:10
PROVIDERS: ADMIT Student in an Organized Health Care Education/Training Program; ATTEND Student in an Organized Health Care Education/Training Program
DX: I63.9 Cerebral infarction, unspecified (principal); I50.23 Acute on chronic systolic (congestive) heart failure; G81.94 Hemiplegia, unspecified affecting left nondominant side; I42.7 Cardiomyopathy due to drug and external agent; F15.10 Other stimulant abuse, uncomplicated; D50.9 Iron deficiency anemia, unspecified; E66.9 Obesity, unspecified; D56.9 Thalassemia, unspecified; E87.6 Hypokalemia; I11.0 Hypertensive heart disease with heart failure; F41.9 Anxiety disorder, unspecified; N39.0 Urinary tract infection, site not specified; Z53.29 Procedure and treatment not carried out because of patient's decision for other reasons; F17.210 Nicotine dependence, cigarettes, uncomplicated; R09.02 Hypoxemia; W18.39XA Other fall on same level, initial encounter; Y93.89 Activity, other specified; Y92.89 Other specified places as the place of occurrence of the external cause; Y99.8 Other external cause status; Z79.82 Long term (current) use of aspirin; Z79.899 Other long term (current) drug therapy; Z82.49 Family history of ischemic heart disease and other diseases of the circulatory system; Z83.3 Family history of diabetes mellitus; Z99.3 Dependence on wheelchair; T43.655A Adverse effect of methamphetamines, initial encounter; M94.0 Chondrocostal junction syndrome [Tietze]; Z68.41 Body mass index [BMI] 40.0-44.9, adult
CPT/HCPCS: 36415; 70496; 70498; 70551; 71045; 80048; 80053; 80061; 80307; 81001; 82728; 82962; 83036; 83540; 83550; 83605; 83735; 84443; 84484; 85025; 85610; 85730; 87086; 93005; 93306; 97110; 97116; 97530; G0378; J2003; J2405

== ENCOUNTER 2024-10-31 12:00 | Emergency (ER) | payer MEDICAID ==
[~2024-10-31] VITALS: Ht 170.2 cm; Wt 111.0 kg
[~2024-10-31 12:00] MED LIST changes: +ACET-1882 PO; +ASPI-325 PO; +ATOR20TA50 PO; +CITA-77 PO; +CLOP75TA70 PO; +EMPA1TAB PO; +FER325T PO; +HYDR12.59 PO; -IBUP-1456 PO; +METO-6 PO; -PRED20TA2 PO; +SACU1TAB PO; +SPIR25TA PO
--- NOTE | 2024-10-31 12:33 | ED.PDOC ---
History of Present Illness HPI Comments 48 y/o obese F, with a Hx of HTN and polysubstance abuse, presents with c/o HTN, today. Patient reports on being seen and sent from [facility] urgent care facility, earlier, today, after being found with elevate blood pressure levels after checking in for HTN medication refill inquiry. Patient, at time of assessment, reports being asymptomatic and has a blood pressure of 212/123. She reports recent CVA and methamphetamine use 4x months ago. Chief Complaint: High Blood Pressure Time Seen by MD: 12:15 Primary Care Provider: NONE Reviewed Notes: Nurses Notes, Medications, Allergies Allergies: Coded Allergies: NO KNOWN ALLERGIES (Unverified , 11/17/22) Home Meds Active Scripts Lisinopril (Lisinopril) 20 Mg Tab, 1 TAB PO DAILY for 10 Days, #10 TAB 5 Refills Prov:YOAV EATON MD 10/31/24 Spironolactone (Aldactone) 25 Mg Tab, 25 MG PO DAILY for 30 Days, #30 TAB Prov:MELIZA HERNANDEZ 09/03/24 Sacubitril-Valsartan (Entresto 24-26 mg) 1 Tab Tab, 1 TAB PO BID for 30 Days, #60 TAB Prov:MELIZA HERNANDEZ 09/03/24 Metoprolol Succinate (Toprol Xl) 50 Mg Tab, 25 MG PO DAILY for 30 Days, #15 TAB Prov:MELIZA HERNANDEZ 09/03/24 Ferrous Sulfate (Ferrous Sulfate) 325 Mg Tab, 325 MG PO BIDWM for 30 Days, #60 TAB Prov:MELIZA HERNANDEZ 09/03/24 Empagliflozin (Jardiance) 10 Mg Tab, 10 MG PO DAILY for 30 Days, #30 TAB Prov:MELIZA HERNANDEZ 09/03/24 Clopidogrel Bisulfate (CLOPIDOGREL) 75 Mg Tab, 75 MG PO DAILY for 30 Days, #30 TAB Prov:MELIZA HERNANDEZ 09/03/24 Citalopram Hydrobromide (Citalopram Hydrobromide) 20 Mg Tab, 20 MG PO DAILY for 30 Days, #30 TAB Prov:MELIZA HERNANDEZ 09/03/24 Atorvastatin Calcium (ATORVASTATIN CALCIUM) 20 Mg Tab, 40 MG PO HS for 30 Days, #60 TAB Prov:MELIZA HERNANDEZ RESIDENT 09/03/24 Aspirin (Aspirin Low Dose) 81 Mg Tab, 81 MG PO DAILY for 30 Days, #30 TAB Prov:MELIZA HERNANDEZ RESIDENT 09/03/24 Acetaminophen (Acetaminophen) 325 Mg Tab, 650 MG PO Q4HP PRN for 10 Days, #100 TAB Prov:MELIZA HERNANDEZ RESIDENT 09/03/24 Reported Medications Hydrochlorothiazide (Hydrochlorothiazide) 12.5 Mg Cap, 1 CAP PO DAILY 08/29/24 Information Source: Patient Mode of Arrival: Ambulatory Severity: Moderate Timing: Hours Duration: Since onset Prehospital treatment: None Past Medical History PAST MEDICAL HISTORY: Denies Surgical History: Denies all surgeries 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 Family History Family History: Reviewed,noncontributory to illness Social History Smoker: Quit Less Than 1 Year, Cigarettes Alcohol: Denies ETOH Use Drugs: Marijuana, Methamphetamine Lives In: Home All Other Systems: Reviewed and Negative (Comprehensive systems review obtained and negative except for what is stated in the HPI.) Physical Exam General Appearance: Moderate Distress HEENT: Normal ENT Inspection, Pharynx Normal, TMs Normal Neck: Full Range of Motion, Non-Tender, Normal, Normal Inspection Respiratory: Chest Non-Tender, Lungs Clear, No Accessory Muscle Use, No Respiratory Distress, Normal Breath Sounds Cardiovascular: No Edema, No JVD, No Murmur, No Gallop, Normal Peripheral Pulses, Regular Rate/Rhythm Breast Exam: Deferred Gastrointestinal: No Organomegaly, Non Tender, No Pulsatile Mass, Normal Bowel Sounds, Soft Genitalia: Deferred Pelvic: Deferred Rectal: Deferred Extremities: No calf tenderness, Normal capillary refill, Normal inspection, Normal range of motion, Non-tender, No pedal edema Musculoskeletal : Apperance: Normal Neurologic: Alert, oil filters inspector II-XII nml as Tested, No Motor Deficits, Normal Affect, Normal Mood, No Sensory Deficits Cerebellar Function: Normal Reflexes: Normal Skin: Dry, Normal Color, Warm Peripheral Pulses: 3+ Radial (R), 3+ Radial (L) Lymphatic: No Adenopathy Was a procedure done? Was a procedure done?: No EKG EKG : [place]: Normal Cardiac Rhythm: NSR Differential Dx Considerations may include: HTN emergency, medication noncompliance, history of substance abuse, history of CVA, among others X-Ray, Labs, Meds, VS Vital Signs Date Time Temp Pulse Resp B/P (MAP) Pulse Ox O2 Delivery O2 Flow Rate FiO2 10/31/24 14:12 188/102 10/31/24 14:03 98.4 93 16 188/102 (130) 95 98.4 10/31/24 13:00 97.0 79 18 184/98 (126) 95 97.0 10/31/24 13:00 79 18 95 Room Air 10/31/24 12:55 184/98 10/31/24 12:17 75 10/31/24 12:16 97.4 83 14 204/121 (148) 99 97.4 Lab Test 10/31/24 12:43 Range/Units White Blood Count 10.1 4.4-10.8 10^3/uL Red Blood Count 5.86 H 4.0-5.20 10^6/uL Hemoglobin 14.3 12.2-16.2 g/dL Hematocrit 43.0 36.0-46.0 % Mean Corpuscular Volume 73.3 L 80.0-100.0 fL Mean Corpuscular Hemoglobin 24.3 L 28.0-32.0 pg Mean Corpuscular Hemoglobin Concent 33.2 32.0-36.0 g/dL Red Cell Distribution Width 25.4 H 11.8-14.3 % Platelet Count 298 140-450 10^3/uL Mean Platelet Volume 8.5 6.9-10.8 fL Neutrophils (%) (Auto) 69.6 37.0-80.0 % Lymphocytes (%) (Auto) 16.7 10.0-50.0 % Monocytes (%) (Auto) 5.4 0.0-12.0 % Eosinophils (%) (Auto) 7.4 H 0.0-7.0 % Basophils (%) (Auto) 0.9 0.0-2.0 % Neutrophils # (Auto) 7.1 1.6-8.6 10 ^3/uL Lymphocytes # (Auto) 1.7 0.4-5.4 10 ^3/uL Monocytes # (Auto) 0.5 0-1.3 10 ^3/uL Eosinophils # (Auto) 0.7 0-0.8 10 ^3/uL Basophils # (Auto) 0.1 0-0.2 10 ^3/uL Nucleated Red Blood Cells 0.1 % Platelet Estimate Adequate Hypochromasia (manual) Slight Anisocytosis (manual) Moderate Microcytosis Moderate Stomatocytes Few Sodium Level 138 136-145 mmol/L Potassium Level 4.0 3.5-5.1 mmol/L Chloride Level 105 98-107 mmol/L Carbon Dioxide Level 25 20-31 mmol/L Anion Gap 8 5-15 Blood Urea Nitrogen 8 L 9-23 mg/dL Creatinine 0.63 0.550-1.02 mg/dL Glomerular Filtration Rate Calc 109 >90 mL/min BUN/Creatinine Ratio 12.7 10.0-20.0 Serum Glucose 77 74-106 mg/dL Calcium Level 9.7 8.7-10.4 mg/dL Troponin I High Sensitivity 5 </=34 ng/L Current Medications Medications (Trade) Dose Ordered Sig/Herbert Route Start Time Stop Time Status Last Admin Amlodipine Besylate (Norvasc Tablet) 10 mg ONCE ONCE PO 10/31/24 12:45 10/31/24 12:46 DC 10/31/24 12:55 Lorazepam (Ativan Tablet) 1 mg ONCE ONCE PO 10/31/24 14:15 10/31/24 14:16 DC 10/31/24 14:11 Clonidine HCl (Catapres Tablet) 0.2 mg ONCE ONCE PO 10/31/24 14:15 10/31/24 14:16 DC 10/31/24 14:12 Patient alert. History of hypertension. She ran out of her blood pressure medication. Blood pressure elevated. Was given amlodipine. Denies chest pain. Denies shortness a breath. No leg swelling. She insists on going home. EKG reviewed does not show any acute changes. Was given prescription of lisinopril. Explained to the patient. Was told to follow up with her primary care physician. Was told to come back if there is any problem. Time of 1ST Reevaluation: 12:45 Reevaluation 1ST: Improved Patient Education/Counseling: Diagnosis, Treatment, Need For Follow Up Family Education/Counseling: No Family Present Departure 1 Departure Time of Disposition: 13:08 Impression: Primary Impression: Hypertensive emergency Disposition: 01 HOME / SELF CARE / HOMELESS Condition: Good e-Prescriptions Lisinopril (Lisinopril) 20 Mg Tab 1 TAB PO DAILY for 10 Days, #10 TAB 5 Refills Prov: YOAV EATON MD 10/31/24 Discharged With: Self Critical Care Note Critical Care Time?: No Stability Stability form required: No Heart Score Heart Score: Heart Score Response (Comments) Value History Slightly Suspicious 0 EKG Normal 0 Age 45-64 1 Risk Factors 1 or 2 risk factors 1 Troponin Normal limit 0 Total 2 I personally scribed for YOAV EATON MD ([email or web address]) on 10/31/24 at 12:33. Electronically submitted by Boo Marcano ([email or web address]). YOAV EATON MD Oct 31, 2024 12:33
[2024-10-31] MEDS: amLODIPine BESYLATE 5 MG TAB PO ONE (12:55)
[2024-10-31 13:03] LABS: Basophils # (auto) 0.1 10 ^3/uL (0-0.2); Nucleated Red Blood Cells % 0.1 %
[2024-10-31 13:05] LABS: Basophils % (auto) 0.9 % (0.0-2.0); Eosinophils # (auto) 0.7 10 ^3/uL (0-0.8); Eosinophils % (auto) 7.4 % (0.0-7.0); Hemoglobin 14.3 g/dL (12.2-16.2); Lymphocytes # (auto) 1.7 10 ^3/uL (0.4-5.4); Lymphocytes % (auto) 16.7 % (10.0-50.0); Mean Corpuscular Hemoglobin 24.3 pg (28.0-32.0); Mean Corpuscular Hgb Conc. 33.2 g/dL (32.0-36.0); Mean Corpuscular Volume 73.3 fL (80.0-100.0); Monocytes # (auto) 0.5 10 ^3/uL (0-1.3); Monocytes % (auto) 5.4 % (0.0-12.0); Neutrophils # (auto) 7.1 10 ^3/uL (1.6-8.6); Neutrophils % (auto) 69.6 % (37.0-80.0); Platelet Count (auto) 298 10^3/uL (140-450); Red Blood Cells 5.86 10^6/uL (4.0-5.20); Red Cell Distribution Width 25.4 % (11.8-14.3); White Blood Cell 10.1 10^3/uL (4.4-10.8)
[2024-10-31] MEDS ORDERED: LISI20TA56 PO (13:09)
[2024-10-31 13:15] LABS: Chloride 105 mmol/L (98-107); Sodium 138 mmol/L (136-145)
[2024-10-31 13:16] LABS: Anion Gap 8 (5-15); Calcium 9.7 mg/dL (8.7-10.4); Carbon Dioxide 25 mmol/L (20-31)
[2024-10-31 13:21] LABS: BUN/Creatinine Ratio 12.7 (10.0-20.0); Glucose 77 mg/dL (74-106)
[2024-10-31 13:30] LABS: Blood Urea Nitrogen 8 mg/dL (9-23)
[2024-10-31 13:57] LABS: Platelet Estimate Adequate
[2024-10-31 13:59] LABS: Anisocytosis Moderate; Hypochromia Slight; Stomatocytes Few
[2024-10-31 14:03] VITALS: TEMP 98.4
[2024-10-31] MEDS: LORazepam 0.5 MG TAB PO ONE (14:11)
[2024-10-31] MEDS: cloNIDine HCL 0.1 MG TAB PO ONE (14:12)
[2024-10-31 15:27] VITALS: BP 158/92; PULSE 60; RESP 18; O2SAT 95
--- NOTE | 2024-11-01 15:04 | ECG ---
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
== END 2024-10-31 15:30 | disposition home or self-care (01) ==
LOC: ER 12:09
DX: I16.1 Hypertensive emergency (principal); F12.90 Cannabis use, unspecified, uncomplicated; F15.90 Other stimulant use, unspecified, uncomplicated; Z87.891 Personal history of nicotine dependence; I10 Essential (primary) hypertension; Z79.02 Long term (current) use of antithrombotics/antiplatelets; Z79.82 Long term (current) use of aspirin; Z79.84 Long term (current) use of oral hypoglycemic drugs; Z79.899 Other long term (current) drug therapy; Z86.73 Personal history of transient ischemic attack (TIA), and cerebral infarction without residual deficits
CPT/HCPCS: 36415; 80048; 84484; 85025; 93005

== ENCOUNTER 2024-11-20 16:02 | Emergency (ER) | payer MEDICAID ==
[~2024-11-20] VITALS: Ht 170.2 cm; Wt 113.1 kg
[~2024-11-20 16:02] MED LIST changes: +LISI20TA56 PO
--- NOTE | 2024-11-20 16:31 | DVH ---
CLINICAL INDICATION: r/o fracture TECHNIQUE: 3 radiographic views of the left ankle were obtained. Comparison: None FINDINGS/IMPRESSION: There is no evidence of acute fracture or dislocation. The visualized joint space is well maintained. The alignment is anatomical. There is no radiopaque foreign body.
[2024-11-20 16:44] VITALS: BP 129/59; PULSE 87; RESP 18; TEMP 98.4; O2SAT 97
[2024-11-20] MEDS ORDERED: IBUP1TAB5 PO (17:06)
--- NOTE | 2024-11-20 17:06 | ED.PDOC ---
Musculoskeletal HPI Comments 49-year-old with no pertinent MHx presents with a chief complaint of atraumatic nonradiating left lateral malleolus edema Onto started two days ago with an unknown cause Has not tried medications for the symptoms listed above Still able to bear weight Denies previous surgeries to the ankle Denies redness or swelling around the ankle Denies fever chills night sweats nausea vomiting Chief Complaint: Lower Extremity Time Seen by MD: 16:05 Primary Care Provider: NEW / Reviewed Notes: Nurses Notes, Medications, Allergies Allergies: Coded Allergies: NO KNOWN ALLERGIES (Unverified , 11/17/22) Home Meds Active Scripts Ibuprofen Micronized (Ibuprofen) 600 Mg Tab, 600 MG PO TIDWM for 7 Days, #21 TAB 0 Refills Prov:PIPPA DESIR [employer] 11/20/24 Lisinopril (Lisinopril) 20 Mg Tab, 1 TAB PO DAILY for 10 Days, #10 TAB 5 Refills Prov:YOAV EATON MD 10/31/24 Spironolactone (Aldactone) 25 Mg Tab, 25 MG PO DAILY for 30 Days, #30 TAB Prov:MELIZA HERNANDEZ [facility] 09/03/24 Sacubitril-Valsartan (Entresto 24-26 mg) 1 Tab Tab, 1 TAB PO BID for 30 Days, #60 TAB Prov:MELIZA HERNANDEZ [facility] 09/03/24 Metoprolol Succinate (Toprol Xl) 50 Mg Tab, 25 MG PO DAILY for 30 Days, #15 TAB Prov:MELIZA HERNANDEZ [facility] 09/03/24 Ferrous Sulfate (Ferrous Sulfate) 325 Mg Tab, 325 MG PO BIDWM for 30 Days, #60 TAB Prov:MELIZA HERNANDEZ [facility] 09/03/24 Empagliflozin (Jardiance) 10 Mg Tab, 10 MG PO DAILY for 30 Days, #30 TAB Prov:MELIZA HERNANDEZ [facility] 09/03/24 Clopidogrel Bisulfate (CLOPIDOGREL) 75 Mg Tab, 75 MG PO DAILY for 30 Days, #30 TAB Prov:MELIZA HERNANDEZ [facility] 09/03/24 Citalopram Hydrobromide (Citalopram Hydrobromide) 20 Mg Tab, 20 MG PO DAILY for 30 Days, #30 TAB Prov:MELIZA HERNANDEZ [facility] 09/03/24 Atorvastatin Calcium (ATORVASTATIN CALCIUM) 20 Mg Tab, 40 MG PO HS for 30 Days, #60 TAB Prov:MELIZA HERNANDEZ RESIDENT 09/03/24 Aspirin (Aspirin Low Dose) 81 Mg Tab, 81 MG PO DAILY for 30 Days, #30 TAB Prov:MELIZA HERNANDEZ RESIDENT 09/03/24 Acetaminophen (Acetaminophen) 325 Mg Tab, 650 MG PO Q4HP PRN for 10 Days, #100 TAB Prov:MELIZA HERNANDEZ RESIDENT 09/03/24 Reported Medications Hydrochlorothiazide (Hydrochlorothiazide) 12.5 Mg Cap, 1 CAP PO DAILY 08/29/24 Information Source: Patient Mode of Arrival: Ambulatory Past Medical History PAST MEDICAL HISTORY: Denies Surgical History: Denies all surgeries 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 Family History Family History: Reviewed,noncontributory to illness Social History Smoker: Quit Less Than 1 Year, Cigarettes Alcohol: Denies ETOH Use Drugs: Marijuana, Methamphetamine Lives In: Home All Other Systems: Reviewed and Negative (per hpi) Physical Exam General Appearance: No Apparent Distress, Normal HEENT: Normal ENT Inspection, Pharynx Normal, TMs Normal Neck: Full Range of Motion, Non-Tender, Normal, Normal Inspection Respiratory: Chest Non-Tender, Lungs Clear, No Accessory Muscle Use, No Respiratory Distress, Normal Breath Sounds Cardiovascular: No Murmur, No Gallop, Regular Rate/Rhythm Breast Exam: Deferred Gastrointestinal: No Organomegaly, Non Tender, No Pulsatile Mass, Normal Bowel Sounds, Soft Genitalia: Deferred Pelvic: Deferred Rectal: Deferred Extremities: No calf tenderness, Normal capillary refill, Normal inspection, Normal range of motion, Non-tender, No pedal edema Musculoskeletal : Apperance: Normal Neurologic: Alert, No Motor Deficits, Normal Affect, Normal Mood, No Sensory Deficits Cerebellar Function: Normal Reflexes: Normal Skin: Dry, Normal Color, Warm Lymphatic: No Adenopathy Was a procedure done? Was a procedure done?: No Images 1 - Localized TTP Differential Diagnosis EXT Differential Diagnosis: Sprain X-Ray, Labs, Meds, VS Vital Signs Date Time Temp Pulse Resp B/P (MAP) Pulse Ox O2 Delivery O2 Flow Rate FiO2 11/20/24 16:44 98.4 87 18 129/59 (82) 97 98.4 11/20/24 16:44 87 18 97 Room Air 11/20/24 16:30 98.4 87 18 129/59 (82) 97 98.4 X-Ray, Labs, Meds, VS Comment History and examination consistent of muscular injury Low likelihood of bony or more serious injury, VSS, pt stable Take IBU 600 w/ food as needed for pain Recommended heat therapy Reviewed RICE management Avoid heavy lifting or strenuous activity Recommended range of motion exercises and limit heavy activity for 1 week If no improvement advised patient to return to the emergency department for follow-up. Time of 1ST Reevaluation: 17:00 Reevaluation 1ST: Improved Patient Education/Counseling: Diagnosis, Treatment Family Education/Counseling: Diagnosis, Treatment Departure 1 Departure Time of Disposition: 17:06 Impression: Primary Impression: Foot tendinitis Disposition: HOME / SELF CARE / HOMELESS Condition: Stable e-Prescriptions Ibuprofen Micronized (Ibuprofen) 600 Mg Tab 600 MG PO TIDWM for 7 Days, #21 TAB 0 Refills Prov: PIPPA DESIR NP 11/20/24 Critical Care Note Critical Care Time?: No Stability Stability form required: No Heart Score Heart Score: Heart Score Response (Comments) Value History N/A 0 EKG N/A 0 Age N/A 0 Risk Factors N/A 0 Troponin N/A 0 Total 0 PIPPA DESIR NP Nov 20, 2024 17:06
== END 2024-11-20 17:07 | disposition home or self-care (01) ==
LOC: ER 16:02
DX: M77.52 Other enthesopathy of left foot and ankle (principal); F12.90 Cannabis use, unspecified, uncomplicated; Z79.899 Other long term (current) drug therapy; Z79.84 Long term (current) use of oral hypoglycemic drugs; Z79.82 Long term (current) use of aspirin; Z79.02 Long term (current) use of antithrombotics/antiplatelets
CPT/HCPCS: 73610

== ENCOUNTER 2024-11-20 23:14 | Emergency (ER) | payer MEDICAID ==
[~2024-11-20 23:14] MED LIST changes: +IBUP1TAB5 PO
== END 2024-11-20 23:31 | disposition left against medical advice (07) ==
LOC: ER 23:14
DX: M25.572 Pain in left ankle and joints of left foot (principal); Z53.21 Procedure and treatment not carried out due to patient leaving prior to being seen by health care provider